=== PATIENT | female | born 1935 | race Caucasian/White ===

== ENCOUNTER 2017-01-29 08:50 | Observation (INO) ==
[2017-01-29] MEDS ORDERED: 0.9 % SODIUM CHLORIDE 1,000 ML IV ONE (09:09)
[2017-01-29] MEDS ORDERED: ONDANSETRON 4 MG/2 ML VIAL IV ONE (09:09)
--- NOTE | 2017-01-29 09:48 | Emergency Department Note ---
Nausea/Vomiting/Diarrhea HPI - General Chief complaint: Nausea/Vomiting/Diarrhea Stated complaint: Nausea, vomiting Diarrhea Time Seen by Provider: 01/29/17 09:06 Source: patient Mode of arrival: wheelchair - History of Present Illness HPI Narrative: 81-year-old female has had multiple episodes of nausea and vomiting this morning. 5 times. Several episodes of diarrhea as well this morning. There has been no blood in the stools. She is mostly complaining of increased weakness she is afebrile denies any cough no shortness of breath is been no chest pain. Had a history of urosepsis in the past is suspicious that this may be the case that she has had 3-4 episodes of hospitalizations in the past due to her UTIs. Patient is currently afebrile . - Related Data Home Medications Medication Instructions Recorded Confirmed aspirin 81 mg tablet,delayed 81 mg PO QDAY tab 02/20/15 01/29/17 release cholecalciferol (vitamin D3) 1,000 1,000 unit PO QDAY cap 02/20/15 01/29/17 unit capsule cranberry 400 mg capsule 400 mg PO QDAY cap 02/20/15 01/29/17 Previous Rx's Medication Instructions Recorded vit C 250 mg-E 200 unit-zinc 40 1 tab PO BID #60 cap 06/19/15 mg-copper 1 ty-mderwu-lauctw capsule pioglitazone 30 mg tablet 30 mg PO QDAY #90 tab 09/18/15 metformin 1,000 mg tablet 1,000 mg PO BID #180 tab 03/10/16 lisinopril 40 mg tablet 40 mg PO QDAY 90 Days 03/11/16 HYDROcodone/APAP 5/325MG [[place] 1 - 2 tab PO Q4HP PRN #60 tab 05/10/16 5/325Mg] blood sugar diagnostic strips See Dose Instructions .ROUTE 06/14/16 .MEDSUPPLY #100 each blood-glucose meter See Dose Instructions .ROUTE 06/14/16 .MEDSUPPLY #1 each lancets See Dose Instructions .ROUTE 06/14/16 .MEDSUPPLY #100 each ciprofloxacin 250 mg tablet 125 mg PO QDAY 90 Days 12/07/16 atorvastatin 20 mg tablet 20 mg PO QHS 90 Days 01/05/17 furosemide 20 mg tablet 20 mg PO QDAY PRN #90 tab 01/05/17 Allergies Allergy/AdvReac Type Severity Reaction Status Date / Time Penicillins Allergy Severe Anaphylaxis Verified 01/29/17 08:54 duloxetine [From Cymbalta] Allergy Unknown Unknown Verified 01/29/17 08:54 morphine Allergy Unknown Unknown Verified 01/29/17 08:54 pregabalin [From Lyrica] AdvReac Mild Vomiting Verified 01/29/17 08:54 MEPERIDINE & RELATED Allergy Unknown Unknown Uncoded 01/05/17 12:58 SULF (SULFONAMIDES) Allergy Unknown Unknown Uncoded 01/05/17 12:58 Review of Systems All systems ED: reviewed and negative except as stated. Constitutional: Denies: fever, chills Genitourinary: Reports: as per HPI. Denies: urgency, dysuria, frequency Musculoskeletal: Denies: back pain Past Medical History - Past Medical History Medical history: Reports: arthritis, diabetes, hyperlipidemia, hypertension, renal disease, thyroid disease, other (Diverticulitis, ventral hernia, anemia or recurrent urinary tract infection, hearing loss, atrial septal aneurysm, small bowel obstruction) Surgical history ED: Reports: cholecystectomy, hip replacement, orthopedic, other (right ankle) Family history: Reports: cancer (Mother ovarian cancer, father pancreatic cancer ) - Social History smoking status: Never smoker Alcohol use: Reports: None Drug use: Reports: none Physical Exam - General Limitations: no limitations General appearance: alert - Head Head exam: atraumatic - Eye Eye exam: Present: normal appearance, PERRL - ENT ENT exam: normal exam, normal oropharynx, mucous membranes dry - Neck Neck exam: Present: normal inspection, full ROM - Chest Chest inspection: Present: normal inspection - Respiratory Respiratory exam: Present: normal lung sounds bilaterally. Absent: respiratory distress, wheezes - Cardiovascular Cardiovascular exam: Present: regular rate. Absent: normal rhythm, bradycardia - Abdominal Exam Abdominal exam: Present: soft. Absent: distention, tenderness - Extremities Exam Extremities exam: Present: normal inspection, full ROM - Back Exam Back exam: Present: normal inspection, full ROM - Neurological Exam Neurological exam: Present: alert, oriented X3, CN II-XII intact, normal gait - Psychiatric Psychiatric exam: Present: normal affect, normal mood Course Vital Signs Temperature 98.1 F 01/29/17 08:51 Pulse Rate 72 01/29/17 08:51 Respiratory Rate 16 01/29/17 08:51 Blood Pressure 166/71 01/29/17 08:51 Pulse Oximetry (%) 99 01/29/17 08:51 Temperature 98.1 F 01/29/17 08:51 Pulse Rate 71 01/29/17 11:01 Respiratory Rate 16 01/29/17 08:51 Blood Pressure 140/55 01/29/17 11:01 Pulse Oximetry (%) 96 01/29/17 11:01 Nausea/Vomiting/Diarrhea - MDM Narrative Medical decision making narrative: Acid is 2.4 the UA shows an 80 WBCs per high-power field blood pressures are holding steady at 120 and above. Count is elevated at 11,460 appears to be normal. dr Banegas contacted patient to be admitted - Lab Data Result diagrams: 01/29/17 09:33 01/29/17 09:33 Lab Results 01/29/17 01/29/17 01/29/17 Range/Units 09:33 09:33 09:33 WBC 11.7 H (4.5-11.0) K/mcL RBC 4.05 (4.00-5.20) M/mcL Hgb 11.8 L (12.0-15.0) g/dL Hct 35.4 L (36.0-48.0) % MCV 87.3 (80.0-100.0) fL MCH 29.1 (26.0-34.0) pg MCHC 33.4 (31.0-36.0) g/dL RDW 13.4 (11.5-14.5) % Plt Count 289 (140-440) K/mcL MPV 8.3 (7.4-10.4) fL Gran % 84.2 H (38.0-78.0) % Lymph % (Auto) 10.1 L (15.5-49.0) % [place] % (Auto) 4.2 (1.0-12.0) % Eos % (Auto) 1.4 (0.0-7.0) % Baso % (Auto) 0.1 (0.0-2.0) % Gran # 9.8 H (1.8-8.0) K/mcL Lymph # 1.2 L (1.5-4.8) K/mcL [place] # 0.5 (0.1-0.9) K/mcL Eos # 0.2 (0.0-0.7) K/mcL Baso # 0 (0.0-0.3) K/mcL Band Neutrophils % Not Reportable VBG Lactic Acid (0.5-2.2) mmol/L Sodium 134 (133-145) mmol/L Potassium 4.4 (3.3-5.1) mmol/L Chloride 97 (96-108) mmol/L Carbon Dioxide 21 L (22-30) mmol/L Anion Gap 16.0 (8-16) BUN 25 H (8-23) mg/dl Creatinine 1.1 (0.6-1.1) mg/dl GFR Calculation 46 Glucose 291 H (70-105) mg/dL Calcium 9.6 (8.6-10.4) mg/dl Total Bilirubin 0.6 (0.0-1.0) mg/dL AST 13 (0-37) U/l ALT 13 (0-40) U/l Alkaline Phosphatase 96 (39-117) U/L Total Protein 6.6 (5.9-8.4) gm/dL Albumin 3.9 (3.2-5.2) gm/dL Globulin 2.7 (2.2-3.7) gm/dL Albumin/Globulin Ratio 1.4 (1.0-2.3) Lipase 39 (7-60) U/L Urine Color Urine Appearance Urine pH (5.0-9.0) Ur Specific [place] (1.000-1.035) Urine Protein (NEG) mg/dL Urine Glucose (UA) (NEG) mg/dL Urine Ketones (NEG) mg/dL Urine Occult Blood (<0.03) mg/dL Urine Nitrate (NEG) Urine Bilirubin (NEG) mg/dL Urine Urobilinogen (NEG) mg/dL Ur Leukocyte Esterase (NEG) /uL Urine RBC (0-1) /hpf Urine WBC (0-4) /hpf Ur Squamous Epith Cells (0-4) /hpf Urine Bacteria (0) /hpf Ur Culture Indicated? 01/29/17 01/29/17 Range/Units 09:34 09:55 WBC (4.5-11.0) K/mcL RBC (4.00-5.20) M/mcL Hgb (12.0-15.0) g/dL Hct (36.0-48.0) % MCV (80.0-100.0) fL MCH (26.0-34.0) pg MCHC (31.0-36.0) g/dL RDW (11.5-14.5) % Plt Count (140-440) K/mcL MPV (7.4-10.4) fL Gran % (38.0-78.0) % Lymph % (Auto) (15.5-49.0) % [place] % (Auto) (1.0-12.0) % Eos % (Auto) (0.0-7.0) % Baso % (Auto) (0.0-2.0) % Gran # (1.8-8.0) K/mcL Lymph # (1.5-4.8) K/mcL [place] # (0.1-0.9) K/mcL Eos # (0.0-0.7) K/mcL Baso # (0.0-0.3) K/mcL Band Neutrophils % VBG Lactic Acid 2.4 H (0.5-2.2) mmol/L Sodium (133-145) mmol/L Potassium (3.3-5.1) mmol/L Chloride (96-108) mmol/L Carbon Dioxide (22-30) mmol/L Anion Gap (8-16) BUN (8-23) mg/dl Creatinine (0.6-1.1) mg/dl GFR Calculation Glucose (70-105) mg/dL Calcium (8.6-10.4) mg/dl Total Bilirubin (0.0-1.0) mg/dL AST (0-37) U/l ALT (0-40) U/l Alkaline Phosphatase (39-117) U/L Total Protein (5.9-8.4) gm/dL Albumin (3.2-5.2) gm/dL Globulin (2.2-3.7) gm/dL Albumin/Globulin Ratio (1.0-2.3) Lipase (7-60) U/L Urine Color Yellow Urine Appearance Cloudy Urine pH 5.0 (5.0-9.0) Ur Specific [place] 1.013 (1.000-1.035) Urine Protein 30 A (NEG) mg/dL Urine Glucose (UA) 150 A (NEG) mg/dL Urine Ketones Neg (NEG) mg/dL Urine Occult Blood Neg (<0.03) mg/dL Urine Nitrate Neg (NEG) Urine Bilirubin Neg (NEG) mg/dL Urine Urobilinogen Neg (NEG) mg/dL Ur Leukocyte Esterase 500 A (NEG) /uL Urine RBC 5 H (0-1) /hpf Urine WBC > 182 H (0-4) /hpf Ur Squamous Epith Cells 0 (0-4) /hpf Urine Bacteria Many A (0) /hpf Ur Culture Indicated? Yes Disposition Disposition: Xfer As Inpt ([facility]) Condition: Fair Referrals: Brandon Nunez DO [Primary Care Provider] - Time of Disposition: 11:35
[2017-01-29] MEDS ORDERED: PROMETHAZINE 25 MG/ML VIAL IV ONE (09:52)
[2017-01-29 10:21] LABS: Basophils # (Auto) 0 K/mcL (0.0-0.3); Basophils % (Auto) 0.1 % (0.0-2.0); Eosinophils # (Auto) 0.2 K/mcL (0.0-0.7); Eosinophils % (Auto) 1.4 % (0.0-7.0); Granulocytes % (Auto) 84.2 % (38.0-78.0); Lymphocytes # (Auto) 1.2 K/mcL (1.5-4.8); Lymphocytes % (Auto) 10.1 % (15.5-49.0); Mean Cell Volume 87.3 fL (80.0-100.0); Mean Corpuscular HGB Conc 33.4 g/dL (31.0-36.0); Mean Corpuscular Hemoglobin 29.1 pg (26.0-34.0); Monocytes # (Auto) 0.5 K/mcL (0.1-0.9); Monocytes % (Auto) 4.2 % (1.0-12.0); Platelet Count 289 K/mcL (140-440); RBC 4.05 M/mcL (4.00-5.20); Red Cell Distribution Width 13.4 % (11.5-14.5)
[2017-01-29 10:37] LABS: Appearance,Urine CLOUDY; Bacteria,Urine MANY /hpf (0); Bilirubin,Urine NEG (NEG); Color,Urine YELLOW; Glucose,Urine (UA) 150 mg/dL (NEG); Leukocyte Esterase,Urine 500 /uL (NEG); Nitrate,Urine NEG (NEG); Protein,Urine 30 mg/dL (NEG); Specific Gravity,Urine 1.013 (1.000-1.035); Urine Blood NEG mg/dL (<0.03); Urine RBC 5 /hpf (0-1); Urine Squamous Epithelial Cell 0 /hpf (0-4); Urine WBC > 182 /hpf (0-4); Urobilinogen,Urine NEG (NEG)
[2017-01-29 10:40] LABS: ALT/SGPT 13 U/l (0-40); Albumin 3.9 gm/dL (3.2-5.2); Albumin/Globulin Ratio 1.4 (1.0-2.3); Alkaline Phosphatase 96 U/L (39-117); Blood Urea Nitrogen 25 mg/dl (8-23); Lipase 39 U/L (7-60)
[2017-01-29] MEDS ORDERED: LEVOFLOXACIN 500 MG/100 ML BAG IV ONE (10:59)
--- NOTE | 2017-01-29 12:02 | Internal Med History&Physical ---
Medical - H&P: HPI Patient information: Note initiated : 01/29/17 at 12:00 pm Patient: Chloe Benitez 81 y/o F admitted on for probable urinary tract infection, with associated nausea, vomiting, diarrhea History of present illness: Ms. Benitez is a 81 year old female with a past history of multiple urinary tract infections, and several episodes of urosepsis. she saw a urologist quite a few years ago, who ultimately put her on daily low-dose ciprofloxacin to prevent recurrent UTI. Her daughter says she is done quite well on that, although she will occasionally have a breakthrough UTI. The patient was in her normal state of health until this morning, when she had the sudden onset of feeling very hot, nauseated, dizzy and then began vomiting this morning, after waking up. She knew to call her son and all right away to bring her to the hospital, as this is how her episodes of sepsis have started in the past. She says she seemed to vomit food from last night There was nothing that was dark brown, black, or red. She did feel dizzy this morning as well. She had a headache initially, but that has resolved. She did have 2 episodes of loose stools this morning, but none since then. She does have chronic urinary incontinence, but otherwise denies painful urination or hematuria. ER evaluation did show leukocytosis, elevated lactic acid, pyuria. Otherwise, the patient denies overt fever, new eye or ear symptoms, sore throat or cough, chest pain or palpitations, shortness of breath or wheezing, abdominal pain, right red blood per rectum. the patient is penicillin allergic, but her daughter says she has received Keflex in the past, and tolerated that well. 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 Hypertension, essential (Chronic 11/01/13) Hypothyroidism (acquired) (Chronic 11/01/13) noted abnormal tsh recheck same Obesity (Chronic) Osteoarthritis, knee (Chronic) Pure hypertriglyceridemia (Chronic) Recurrent urinary tract infection (Chronic) Ventral hernia (Chronic) Vitamin D deficiency (Chronic 11/08/13) vit d level 15 start vitamin d3 1000 unit units daily Radial fracture (Resolved) 04/27/2014 Dr Hernández Small bowel obstruction (Resolved) Surgical History H/O ventral hernia repair (Chronic) Hx of laparoscopy (Chronic 10/19/15) Laparoscopy followed by exploratory laparotomy with adhesiolysis - Dr. Quinteros Status post total knee replacement (Chronic) Follows with Dr Ryan, Left knee done october 2014 History of (Inactive) X2 History of cholecystectomy (Inactive) laparoscopic History of cystoscopy (Inactive 10/11/14) Dr Mendez History of total hip replacement (Inactive) left History of ventral hernia (Inactive) ventral herniorraphy X2 2000 & 2002 Status post VINOD-BSO (Inactive) Medication List aspirin 81 mg PO QDAY atorvastatin (Lipitor) 20 mg PO QHS 90 days cholecalciferol (vitamin D3) 1,000 units PO QDAY ciprofloxacin 125 mg (1/2 x 250 mg) PO QDAY 90 days cranberry 400 mg PO QDAY furosemide 20 mg PO QDAY PRN hydrocodone-acetaminophen 5-325 mg 1 - 2 tabs PO Q4HP PRN lancets As directed, Test blood sugar once daily lisinopril (Zestril) 40 mg PO QDAY 90 days metformin 1,000 mg PO BID pioglitazone 30 mg PO QDAY vit C,L-Wy-dkdiy-lutein-zeaxan [id number] fg-snhp-mz-mg 1 tab PO BID Allergies/Adverse Reactions Penicillins Allergy (Severe, Verified 01/05/17 12:58) Anaphylaxis duloxetine [From Cymbalta] Allergy (Unknown, Verified 01/05/17 12:58) Unknown morphine Allergy (Unknown, Verified 01/05/17 12:58) Unknown levofloxacin Adverse Reaction (Mild, Verified 01/05/17 12:58) Nausea pregabalin [From Lyrica] Adverse Reaction (Mild, Verified 01/05/17 12:58) Vomiting MEPERIDINE & RELATED Allergy (Unknown, Uncoded 01/05/17 12:58) Unknown SULF (SULFONAMIDES) Allergy (Unknown, Uncoded 01/05/17 12:58) Unknown Family History Mother/52 Malignant neoplasm of ovary with BRCA1 gene mutation Father/78 Type 2 diabetes mellitus Malignant neoplasm of pancreas Social History smoking status: Never smoker alcohol intake frequency: does not drink substance use type: does not use Medical - H&P: Meds Home Medications Medication Instructions Recorded Confirmed Type aspirin 81 mg tablet,delayed 81 mg PO QDAY tab 02/20/15 01/29/17 History release cholecalciferol (vitamin D3) 1,000 1,000 unit PO QDAY cap 02/20/15 01/29/17 History unit capsule cranberry 400 mg capsule 400 mg PO QDAY cap 02/20/15 01/29/17 History vit C 250 mg-E 200 unit-zinc 40 1 tab PO BID #60 cap 06/19/15 01/29/17 Rx mg-copper 1 kc-dgymiy-jckbgd capsule pioglitazone 30 mg tablet 30 mg PO QDAY #90 tab 09/18/15 01/29/17 Rx metformin 1,000 mg tablet 1,000 mg PO BID #180 tab 03/10/16 01/29/17 Rx lisinopril 40 mg tablet 40 mg PO QDAY 90 Days 03/11/16 01/29/17 Rx HYDROcodone/APAP 5/325MG [[place] 1 - 2 tab PO Q4HP PRN #60 tab 05/10/16 01/29/17 Rx 5/325Mg] blood sugar diagnostic strips See Dose Instructions .ROUTE 06/14/16 01/05/17 Rx .MEDSUPPLY #100 each blood-glucose meter See Dose Instructions .ROUTE 06/14/16 01/05/17 Rx .MEDSUPPLY #1 each lancets See Dose Instructions .ROUTE 06/14/16 01/05/17 Rx .MEDSUPPLY #100 each ciprofloxacin 250 mg tablet 125 mg PO QDAY 90 Days 12/07/16 01/29/17 Rx atorvastatin 20 mg tablet 20 mg PO QHS 90 Days 01/05/17 01/29/17 Rx furosemide 20 mg tablet 20 mg PO QDAY PRN #90 tab 01/05/17 01/29/17 Rx Allergies Allergy/AdvReac Type Severity Reaction Status Date / Time Penicillins Allergy Severe Anaphylaxis Verified 01/29/17 08:54 duloxetine [From Cymbalta] Allergy Unknown Unknown Verified 01/29/17 08:54 morphine Allergy Unknown Unknown Verified 01/29/17 08:54 pregabalin [From Lyrica] AdvReac Mild Vomiting Verified 01/29/17 08:54 MEPERIDINE & RELATED Allergy Unknown Unknown Uncoded 01/05/17 12:58 SULF (SULFONAMIDES) Allergy Unknown Unknown Uncoded 01/05/17 12:58 Medical - H&P: Exam - Constitutional Vitals: Temp Pulse Resp BP Pulse Ox 98.1 F 69 16 140/55 95 01/29/17 08:51 01/29/17 11:31 01/29/17 08:51 01/29/17 11:01 01/29/17 11:31 on exam, she is a well-developed well-nourished elderly woman in no acute distress. Head is normocephalic, atraumatic. Eyes: PERRLA, EOMI, anicteric. She appears to have bilateral IOLs. Ears: TMs and canals are clear. Pharynx:The patient is a full upper plate. She has only a few remaining teeth in her lower jaw. Posterior pharynx is clear.Neck: Is supple, without obvious JVD, thyromegaly, bruits lymphadenopathy Cardiac exam: Shows regular rate and rhythm, with normal S1 and S2. No murmurs , rubs, gallops are appreciated Lungs: Are clear to auscultation, without obvious rales, rhonchi, wheezes. Abdomen: Soft and nontender, without obvious masses. Bowel sounds are active. There is no guarding or rebound. Extremities: Show no cyanosis or clubbing. There is a trace edema around the right ankle, which she reports she's had since her ankle fracture last year. Neurologic exam: Patient is alert and oriented, calm and cooperative. Exam is grossly nonfocal. Medical - H&P: Reslt - Labs CBC & Chem 7: 01/29/17 09:33 01/29/17 09:33 Labs: Short CBC 01/29/17 Range/Units 09:33 WBC 11.7 H (4.5-11.0) K/mcL Hgb 11.8 L (12.0-15.0) g/dL Hct 35.4 L (36.0-48.0) % Plt Count 289 (140-440) K/mcL BMP 01/29/17 09:33 Sodium 134 Potassium 4.4 Chloride 97 Carbon Dioxide 21 L BUN 25 H Creatinine 1.1 Glucose 291 H Calcium 9.6 Liver Function 01/29/17 Range/Units 09:33 Total Bilirubin 0.6 (0.0-1.0) mg/dL AST 13 (0-37) U/l ALT 13 (0-40) U/l Alkaline Phosphatase 96 (39-117) U/L Albumin 3.9 (3.2-5.2) gm/dL Urine 01/29/17 Range/Units 09:34 Urine Color Yellow Urine Appearance Cloudy Urine pH 5.0 (5.0-9.0) Ur Specific [place] 1.013 (1.000-1.035) Urine Protein 30 A (NEG) mg/dL Urine Glucose (UA) 150 A (NEG) mg/dL January 29: CBC differential shows 9800 neutrophils lactic acid is elevated at 2.4 urinalysis: Shows 30 mg of protein, 150 mg of glucose, 500 leukocyte esterase greater than 180 white blood cells many bacteria hest x-ray: Is pending Medical - H&P: A/P (1) Nausea and vomiting in adult Current visit: Yes Status: Acute (2) Dehydration Current visit: Yes Status: Acute (3) Diarrhea Current visit: Yes Status: Acute (4) CKD (chronic kidney disease), stage II Problem details: creat stable, follows with Nephrology, continue to monitor, etiology DM and HTN likely. Current visit: No Status: Chronic (5) Hypothyroidism (acquired) Problem details: noted abnormal tsh recheck same Current visit: No Status: Chronic (6) Hypertension, essential Current visit: No Status: Chronic (7) Diabetes mellitus type 2 with neurological manifestations Problem details: Current visit: No Status: Chronic (8) Recurrent urinary tract infection Current visit: No Status: Acute (9) Anemia Problem details: noted on labs done during knee surgeyr, check cbc to ensure its resolved. Current visit: No Status: Chronic - Narrative A/P Narrative: 31. Infectious disease. -This patient presents with weakness, nausea vomiting and diarrhea, urinalysis suggestive of urinary tract infection, as well as elevated lactic acid and leukocytosis. She is having trouble maintaining oral intake, and appears a bit dehydrated, so will require admission for treatment. -she has been on ciprofloxacin as an outpatient as a suppressive agent so I would think we would need to use a non-fluoroquinolone for management. I would like to use Rocephin o I did check with her daughter who believes that the patient has tolerated oral Keflex in the past. This should make the risk of cross sensitivity reaction last period. -urine and blood cultures -hold ciprofloxacin. #2. Renal. -patient presents with mild lactic acidosis, and dehydration. Bicarbonate is on the low side. She also takes metformin, so is at risk for acidosis from that as well. -hold metformin. -IV fluids. Recheck lactic acid in 6 hours. -Reported mild chronic kidney disease. Follow labs. #3. GI. -Nausea vomiting and diarrhea Patient is at risk for C. difficile colitis, given that she takes antibiotics chronically. Send stool for C. difficile screen. Stool culture also ordered. #4. Endocrine. -Type 2 diabetes. etformin is on hold. Cover with sliding scale insulin. Continue by mouth glitazone. Verify whether or not she is on sitagliptin. -continue aspirin, statin, RADHA inhibitor. -reported vitamin D deficiency. Continue vitamin D. #5.macular degeneration. Continue IV vitamin, and IM injections per op so. #6. CODE STATUS: 37. DVT prophylaxis: Subcutaneous heparin. #8. Cardiac. -Hypertension. Continue meds. Monitor. #9. Anemia; -she has mild chronic anemia. Hemoglobin varies from 9-11 over the last year. follow. #10. Polyarthritis, chronic, with some degree of chronic pain Continue when necessary hydrocodone, as at home. #11. History of hypertension. Continue lisinopril. #12. reported History of hypothyroidism. i do not see that she takes thyroid medicine, or that this has been checked recently. She can follow-up with her PCP regarding this. #13.History of hypertriglyceridemia. Patient is currently treated with atorvastatin. Continue. this visit has taken approximately 55 minutes, to review the patient's old records, interview and examine her discussed plan of care with the patient and her daughter, and write orders.
[2017-01-29 12:15] LABS: Eosinophils % (Manual) 1 % (0-7); Lymphocytes % 9 % (15-49); Monocytes % (Manual) 3 % (1-12); Platelet Estimate NORMAL (NORMAL); RBC Morphology NORMAL (NORMAL); Segmented Neutrophils % 87 % (38-78)
[2017-01-29] MEDS ORDERED: ONDANSETRON 4 MG/2 ML VIAL IV PRN (12:47)
[2017-01-29] MEDS ORDERED: NALOXONE HCL 0.4 MG/ML VIAL IV PRN (12:47)
[2017-01-29] MEDS ORDERED: MAGNESIUM HYDROXIDE 30 ML ORAL.SUSP PO PRN (12:47)
[2017-01-29] MEDS ORDERED: DOCUSATE SODIUM 100 MG CAPSULE PO PRN (12:47)
[2017-01-29] MEDS ORDERED: DEXTROSE 50% 50 ML VIAL IV PRN (12:47)
[2017-01-29] MEDS ORDERED: ACETAMINOPHEN 325 MG TABLET PO PRN (12:47)
[2017-01-29] MEDS: POTASSIUM CHLORIDE 10 MEQ in 0.45 % SODIUM CHLORIDE 1,000 ML IV SCH (13:08)
[2017-01-29] MEDS: INSULIN LISPRO 1 UNIT/0.01 ML UNIT SQ SCH ×3 (13:09→21:35)
[2017-01-29 14:21] LABS: Hemoglobin A1C 8.7 % HGB (4.0-6.0)
[2017-01-29] MEDS: 0.9 % SODIUM CHLORIDE 10 ML SYRINGE IV SCH ×2 (14:33→21:40)
--- NOTE | 2017-01-29 15:01 | XRay Report ---
CLINICAL INFORMATION: Weakness COMPARISON: None. FINDINGS: The heart is mildly enlarged, but unchanged. Mediastinum and pulmonary vessels are unremarkable. Minimal basilar atelectasis noted. No effusions. IMPRESSION: Mild cardiomegaly - stable. Interpreted and Authenticated by: Brnadon Ag 01/29/17
[2017-01-29] MEDS: cefTRIAXone 1 GM in DEXTROSE 5% IN WATER 50 ML IV SCH (16:06)
[2017-01-29] MEDS: HEPARIN 5,000 UNIT/ML VIAL SQ SCH (21:34)
[2017-01-30] MEDS: POTASSIUM CHLORIDE 10 MEQ in 0.45 % SODIUM CHLORIDE 1,000 ML IV SCH ×3 (00:10→21:47)
[2017-01-30] MEDS: 0.9 % SODIUM CHLORIDE 10 ML SYRINGE IV SCH ×3 (05:36→21:51)
[2017-01-30 06:35] LABS: Basophils # (Auto) 0 K/mcL (0.0-0.3); Basophils % (Auto) 0.3 % (0.0-2.0); Eosinophils # (Auto) 0.2 K/mcL (0.0-0.7); Eosinophils % (Auto) 2.3 % (0.0-7.0); Granulocytes % (Auto) 75.7 % (38.0-78.0); Lymphocytes # (Auto) 1.4 K/mcL (1.5-4.8); Lymphocytes % (Auto) 14.3 % (15.5-49.0); Mean Cell Volume 87.3 fL (80.0-100.0); Mean Corpuscular HGB Conc 33.5 g/dL (31.0-36.0); Mean Corpuscular Hemoglobin 29.2 pg (26.0-34.0); Monocytes # (Auto) 0.7 K/mcL (0.1-0.9); Monocytes % (Auto) 7.4 % (1.0-12.0); Platelet Count 262 K/mcL (140-440); RBC 3.67 M/mcL (4.00-5.20); Red Cell Distribution Width 13.6 % (11.5-14.5)
[2017-01-30 07:07] LABS: ALT/SGPT 13 U/l (0-40); Albumin 3.7 gm/dL (3.2-5.2); Albumin/Globulin Ratio 1.7 (1.0-2.3); Alkaline Phosphatase 89 U/L (39-117); Bilirubin,Direct < 0.2 mg/dL (0.0-0.3); Blood Urea Nitrogen 23 mg/dl (8-23); Gamma Glutamyl Transpeptidase 10 U/L (5-36); Magnesium 1.7 mg/dL (1.6-2.5); Uric Acid 5.9 mg/dL (2.5-8.0)
[2017-01-30] MEDS: INSULIN LISPRO 1 UNIT/0.01 ML UNIT SQ SCH ×4 (08:07→21:50)
[2017-01-30] MEDS: HEPARIN 5,000 UNIT/ML VIAL SQ SCH ×2 (08:08→21:50)
[2017-01-30] MEDS: cefTRIAXone 1 GM in DEXTROSE 5% IN WATER 50 ML IV SCH (09:22)
--- NOTE | 2017-01-30 11:31 | Internal Med Progress Note ---
Medical - PN: Subj Patient information: Note initiated : 01/30/17 at 11:31 am Patient: Chloe Benitez 81 y/o F admitted on 01/29/17 for Nausea, vomiting Diarrhea. Interval history: January 29, 2017: History of present illness: Ms. Benitez is a 81 year old female with a past history of multiple urinary tract infections, and several episodes of urosepsis. she saw a urologist quite a few years ago, who ultimately put her on daily low-dose ciprofloxacin to prevent recurrent UTI. Her daughter says she is done quite well on that, although she will occasionally have a breakthrough UTI. The patient was in her normal state of health until this morning, when she had the sudden onset of feeling very hot, nauseated, dizzy and then began vomiting this morning, after waking up. She knew to call her son and all right away to bring her to the hospital, as this is how her episodes of sepsis have started in the past. She says she seemed to vomit food from last night There was nothing that was dark brown, black, or red. She did feel dizzy this morning as well. She had a headache initially, but that has resolved. She did have 2 episodes of loose stools this morning, but none since then. She does have chronic urinary incontinence, but otherwise denies painful urination or hematuria. ER evaluation did show leukocytosis, elevated lactic acid, pyuria. Otherwise, the patient denies overt fever, new eye or ear symptoms, sore throat or cough, chest pain or palpitations, shortness of breath or wheezing, abdominal pain, right red blood per rectum. January 30: today, the patient notes she is feeling quite a bit better. She has not had any more fever or chills, nausea or vomiting or diarrhea. She did have a soft, formed bowel movement this morning. Her nurse reports that her urine seems to be quite a bit less cloudy and less dark today. otherwise, she denies headaches or dizziness, chest pain or palpitations, shortness of breath, abdominal pain, nausea or vomiting, diarrhea or constipation. She has chronic urinary incontinence, but denies any pain with urination. - Constitutional Vitals: Vital Signs Temp Pulse Resp BP Pulse Ox 97.5 F 70 20 130/68 96 01/30/17 07:17 01/30/17 04:00 01/30/17 08:15 01/30/17 07:17 01/30/17 08:15 Period Temp Pulse Resp BP Sys/Abreu Pulse Ox Last 24 Hr 97.5 F-98.7 F 70-90 16-20 123-148/68-77 94-97 Intake and Output 01/29/17 01/30/17 01/30/17 21:59 05:59 13:59 Intake Total 760 / 760 1205 / 1205 1005 / 1005 Output Total 1500 / 1500 1450 / 1450 Balance -740 / -740 -245 / -245 1005 / 1005 Weight 173 lb Intake & Output: Intake & Output 01/29/17 01/30/17 01/30/17 21:59 05:59 13:59 Intake Total 760 / 760 1205 / 1205 1005 / 1005 Output Total 1500 / 1500 1450 / 1450 Balance -740 / -740 -245 / -245 1005 / 1005 Weight 173 lb Intake: IV 50 / 50 1005 / 1005 1005 / 1005 Potassium Chloride 10 Meq 1005 / 1005 1005 / 1005 In Sodium Chloride 0.45% 1,000 ml @ 100 mls/hr IV .Q10H3M [facility] Rx#: [id number] Rocephin 1 gm In Dextrose 50 / 50 5% in Water 50 ml @ 100 mls/hr IV Q24H [facility] Rx#: [id number] Oral 710 / 710 200 / 200 Output: Void Amount 1500 / 1500 1450 / 1450 Other: Meal Dinner Snack Percent of Meal Consumed 90% 100% Feeding Ability Independent Assist with Tray Set Up # Voids 1 1 # Bowel Movements 1 on exam, she is sitting up in bed. She is awake and alert, and in no acute distress. Neck is supple without lymphadenopathy or JVD. Cardiac exam shows regular rate and rhythm. Lungs are clear to auscultation. Abdomen is soft and nontender. Bowel sounds are active. Extremities show trace edema around her right ankle. Neurologic exam: Is grossly nonfocal Medical - PN: Obj Da - Labs CBC & Chem 7: 01/30/17 05:12 01/30/17 05:12 Labs: Abnormal Lab Results 01/30/17 01/30/17 05:12 05:12 RBC 3.67 L Hgb 10.7 L Hct 32.0 L Lymph % (Auto) 14.3 L Lymph # 1.4 L Creatinine 1.2 H Glucose 254 H Triglycerides 248 H january 30: -C. difficile screen is negative. -Blood cultures are negative so far -Urine culture is growing greater than 100,000 gram-negative bacilli , ID to follow January 29: CBC differential shows 9800 neutrophils lactic acid is elevated at 2.4 lactic acid #2, was normal at 2.0 urinalysis: Shows 30 mg of protein, 150 mg of glucose, 500 leukocyte esterase greater than 180 white blood cells many bacteria chest x-ray:showed mild cardiomegaly, unchanged from previous. There is minimal basilar atelectasis. Meds: Medications Acetaminophen (Tylenol) 650 mg PO Q6HP PRN PRN Reason: PAIN/FEVER > 101 Ascorbic Acid (Vitamin C) 500 mg PO BIDCC [facility] Aspirin (Aspirin) 81 mg PO DAILY [facility] Atorvastatin Calcium (Lipitor) 20 mg PO QHS [facility] Dextrose (Dextrose 50%) 0 ml IV UD PRN PRN Reason: Hypoglycemia Diagnostic Test (Pha) (Accu-Chek) 1 each FS ACHS [facility] Last Admin: 01/30/17 11:00 Dose: 1 each Docusate Sodium (Colace) 100 mg PO BID PRN PRN Reason: Constipation Heparin Sodium (Porcine) (Heparin) 5,000 unit SQ Q12 [facility] Last Admin: 01/30/17 08:08 Dose: 5,000 unit Ceftriaxone Sodium 1 gm/ (Dextrose) 50 mls @ 100 mls/hr IV Q24H [facility] Last Admin: 01/30/17 09:22 Dose: 100 mls/hr Potassium Chloride 10 meq/ (Sodium Chloride) 1,005 mls @ 100 mls/hr IV .Q10H3M [facility] Last Admin: 01/30/17 10:58 Dose: 100 mls/hr Insulin Human Lispro (Humalog) 0 unit SQ ACHS [facility] PRN Reason: Protocol Last Admin: 01/30/17 11:00 Dose: 4 unit Lisinopril (Zestril) 40 mg PO DAILY [facility] Magnesium Hydroxide (Milk Of Magnesia) 30 ml PO DAILYP PRN PRN Reason: Constipation Naloxone HCl (Narcan) 0.1 mg IV Q2MIN PRN PRN Reason: Opiate Reversal Ondansetron HCl (Zofran) 4 mg IV Q6HP PRN PRN Reason: Nausea And Vomiting Pioglitazone HCl (Actos) 30 mg PO DAILY [facility] Sitagliptin Phosphate (Januvia) 100 mg PO DAILY [facility] Sodium Chloride (Saline Flush) 10 ml IV Q8 [facility] Last Admin: 01/30/17 05:36 Dose: Not Given Vitamin D (Vitamin D3) 1,000 unit PO DAILY [facility] Medical - PN: A/P - Time Spent With Patient Total time spent is greater than 50% in coordination of care (as documented) at patient's floor/unit and/or counseling patient: 15 - 24 minutes (1) Nausea and vomiting in adult Status: Resolved Current Visit: Yes (2) Dehydration Status: Resolved Current Visit: Yes (3) Diarrhea Status: Resolved Current Visit: Yes (4) CKD (chronic kidney disease), stage II Problem details: creat stable, follows with Nephrology, continue to monitor, etiology DM and HTN likely. 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 Status: Chronic Current Visit: No - Narrative A/P Narrative: #1. Infectious disease. -This patient presents with weakness, nausea vomiting and diarrhea, urinalysis suggestive of urinary tract infection, as well as elevated lactic acid and leukocytosis. She is having trouble maintaining oral intake, and appears a bit dehydrated, so will require admission for treatment. -she seems to be feeling quite a bit better today, and most symptoms have resolved. She is on empiric Rocephin, pending urine culture results. Urine is growinggram -negative rods. -blood cultures are negative so far. #2. Renal. -patient presents with mild lactic acidosis, and dehydration. Bicarbonate is on the low side. She also takes metformin, so is at risk for acidosis from that as well. -hold metformin. -lactic acidosis resolved with hydration. -Reported mild chronic kidney disease. creatinine varies from 1.1-1.3, and is stable. #3. GI. -Nausea vomiting and diarrhea Patient is at risk for C. difficile colitis, given that she takes antibiotics chronically. -C. difficile screen was negative. The patient is no longer having diarrhea. #4. Endocrine. -Type 2 diabetes. metformin is on hold. glucoses are ranging from 149-291. Cover with sliding scale insulin. -continue Actos and Januvia. -continue aspirin, statin, RADHA inhibitor. -reported vitamin D deficiency. Continue vitamin D. #5.macular degeneration. Continue intraocular avastin injections per ophthalmology. #6. CODE STATUS:the patient and her daughter decided she didn't want to be full code and they reminded us that we had this in our records. However when her nurse pulled her old records, and actually said no CPR. I believe the nurse went back and in clarified that they do indeed want full code. #7. DVT prophylaxis: Subcutaneous heparin. #8. Cardiac. -Hypertension. -controlled. Continue meds. Monitor. #9. Anemia; -she has mild chronic anemia. Hemoglobin varies from 9-11 over the last year. follow. #10. Polyarthritis, chronic, with some degree of chronic pain Continue when necessary hydrocodone, as at home. #11. History of hypertension. Continue lisinopril. #12. reported History of hypothyroidism. i do not see that she takes thyroid medicine, or that this has been checked recently. She can follow-up with her PCP regarding this. #13.History of hypertriglyceridemia. Patient is currently treated with atorvastatin. Continue. this visit took approximately 25 minutes today, to review test results, interview and examine her, and write orders. Medical - PN: Qual - VTE Deep Vein Thrombosis/Pulmonary Embolism Present on Admission: No
[2017-01-30] MEDS: ASCORBIC ACID 500 MG TABLET PO SCH (17:24)
[2017-01-30] MEDS ORDERED: ATORVASTATIN 20 MG TABLET PO SCH (21:00)
[2017-01-30] MEDS ORDERED: FUROSEMIDE 20 MG TABLET PO PRN (21:38)
[2017-01-31] MEDS: 0.9 % SODIUM CHLORIDE 10 ML SYRINGE IV SCH ×2 (06:06→12:31)
[2017-01-31 06:41] LABS: Basophils # (Auto) 0 K/mcL (0.0-0.3); Basophils % (Auto) 0.2 % (0.0-2.0); Eosinophils # (Auto) 0.3 K/mcL (0.0-0.7); Eosinophils % (Auto) 4.7 % (0.0-7.0); Granulocytes % (Auto) 66.5 % (38.0-78.0); Lymphocytes # (Auto) 1.4 K/mcL (1.5-4.8); Lymphocytes % (Auto) 20.9 % (15.5-49.0); Mean Cell Volume 86.3 fL (80.0-100.0); Mean Corpuscular HGB Conc 34.9 g/dL (31.0-36.0); Mean Corpuscular Hemoglobin 30.1 pg (26.0-34.0); Monocytes # (Auto) 0.5 K/mcL (0.1-0.9); Monocytes % (Auto) 7.7 % (1.0-12.0); Platelet Count 243 K/mcL (140-440); RBC 3.59 M/mcL (4.00-5.20); Red Cell Distribution Width 13.1 % (11.5-14.5)
[2017-01-31 07:04] LABS: ALT/SGPT 16 U/l (0-40); Albumin 3.5 gm/dL (3.2-5.2); Albumin/Globulin Ratio 1.4 (1.0-2.3); Alkaline Phosphatase 91 U/L (39-117); Bilirubin,Direct < 0.2 mg/dL (0.0-0.3); Blood Urea Nitrogen 20 mg/dl (8-23); Gamma Glutamyl Transpeptidase 14 U/L (5-36); Magnesium 1.8 mg/dL (1.6-2.5); Uric Acid 5.7 mg/dL (2.5-8.0)
[2017-01-31] MEDS: ASCORBIC ACID 500 MG TABLET PO SCH (08:25)
[2017-01-31] MEDS: INSULIN LISPRO 1 UNIT/0.01 ML UNIT SQ SCH ×2 (08:25→11:43)
[2017-01-31] MEDS: HEPARIN 5,000 UNIT/ML VIAL SQ SCH (08:26)
[2017-01-31] MEDS: cefTRIAXone 1 GM in DEXTROSE 5% IN WATER 50 ML IV SCH (08:44)
[2017-01-31] MEDS ORDERED: ASPIRIN 81 MG TAB.CHEW PO SCH (09:00)
[2017-01-31] MEDS ORDERED: PIOGLITAZONE 15 MG TABLET PO SCH (09:00)
[2017-01-31] MEDS ORDERED: sitaGLIPtin 100 MG TABLET PO SCH (09:00)
[2017-01-31] MEDS ORDERED: VITAMIN D3 1,000 UNIT TABLET PO SCH (09:00)
[2017-01-31] MEDS ORDERED: LISINOPRIL 20 MG TABLET PO SCH (09:00)
[2017-01-31] MEDS ORDERED: NITROFURANTOIN SR 100 MG CAPSULE PO SCH (11:22)
--- NOTE | 2017-01-31 11:29 | Discharge Summary ---
Medical - DS: Prov Patient information: Note initiated : 01/31/17 at 11:29 am Service Date, if different from initiated Date: [] Patient: Chloe Benitez 81 y/o F admitted on 01/29/17 for Nausea, Vomiting, Diarrhea/Dehydration. Chief Complaint: [] Date of admission: 01/29/17 12:35 Primary care physician: Brandon Nunez Medical - DS: Meds - Discharge Medications Active and Home Medications: Home Medications aspirin 81 mg tablet,delayed release 81 mg PO QDAY tab 02/20/15 [History Confirmed 01/29/17 Last Taken 01/28/17 08:00] cholecalciferol (vitamin D3) 1,000 unit capsule 1,000 unit PO QDAY cap [History Confirmed 01/29/17 Last Taken 01/28/17 08:00] cranberry 400 mg capsule 400 mg PO QDAY cap 02/20/15 [History Confirmed Last Taken 01/28/17 08:00] vit C 250 mg-E 200 unit-zinc 40 mg-copper 1 [id number] capsule 1 tab PO BID #60 cap 06/19/15 [Rx Confirmed 01/29/17 Last Taken 01/28/17 20:00] pioglitazone 30 mg tablet 30 mg PO QDAY #90 tab 09/18/15 [Rx Confirmed 01/29/17 Last Taken 01/28/17 08:00] metformin 1,000 mg tablet 1,000 mg PO BID #180 tab 03/10/16 [Rx Confirmed Last Taken 01/28/17 20:00] lisinopril 40 mg tablet 40 mg PO QDAY 90 Days 03/11/16 [Rx Confirmed 01/29/17 Last Taken 01/28/17 08:00] ciprofloxacin 250 mg tablet 125 mg PO QDAY 90 Days 12/07/16 [Rx Confirmed Last Taken 01/28/17 08:00] atorvastatin 20 mg tablet 20 mg PO QHS 90 Days 01/05/17 [Rx Confirmed 01/29/17 Last Taken 01/28/17 20:00] furosemide 20 mg tablet 20 mg PO QDAY PRN #90 tab 01/05/17 [Rx Confirmed Last Taken Unknown] Medical - DS: Hosp Hospital course: Mr. Benitez is a 81 year old male - Time Spent with Patient Total time spent providing and/or coordinating discharge services: Medical - DS: Exam - Constitutional Vitals: Vital Signs Temp Pulse Resp BP BP Pulse Ox 01/31/17 07:44 97.8 F 18 145/54 95 01/31/17 07:24 96 01/31/17 04:00 97.9 F 59 L 16 148/89 94 01/30/17 23:48 99.0 F H 65 18 156/83 96 01/30/17 20:00 97.2 F 70 16 169/80 94 01/30/17 15:06 97.6 F 18 130/65 96 01/30/17 12:00 98.1 F 18 138/77 97 Intake and Output 01/30/17 01/31/17 01/31/17 21:59 05:59 13:59 Intake Total 2105 / 2105 400 / 400 400 / 400 Output Total 1225 / 1225 1300 / 1300 1000 / 1000 Balance 880 / 880 -900 / -900 -600 / -600 Intake: IV 1005 / 1005 Potassium Chloride 10 Meq 1005 / 1005 In Sodium Chloride 0.45% 1,000 ml @ 100 mls/hr IV .Q10H3M [facility] Rx#: [id number] Oral 1100 / 1100 400 / 400 400 / 400 Output: Void Amount 1225 / 1225 1300 / 1300 1000 / 1000 Other: Meal Dinner Percent of Meal Consumed 100% # Voids 1 1 Weight 176 lb Medical - DS: Data Labs on day of discharge: Labs from last 24 hours 01/31/17 01/31/17 05:27 05:27 WBC 6.8 RBC 3.59 L Hgb 10.8 L Hct 31.0 L MCV 86.3 MCH 30.1 MCHC 34.9 RDW 13.1 Plt Count 243 MPV 7.8 Gran % 66.5 Lymph % (Auto) 20.9 [place] % (Auto) 7.7 Eos % (Auto) 4.7 Baso % (Auto) 0.2 Gran # 4.5 Lymph # 1.4 L [place] # 0.5 Eos # 0.3 Baso # 0 Sodium 136 Potassium 4.6 Chloride 102 Carbon Dioxide 21 L Anion Gap 13.0 BUN 20 Creatinine 1.0 GFR Calculation 52 Glucose 282 H Uric Acid 5.7 Calcium 9.0 Phosphorus 3.2 Magnesium 1.8 Total Bilirubin 0.4 Direct Bilirubin < 0.2 GGT 14 AST 16 ALT 16 Alkaline Phosphatase 91 Lactate Dehydrogenase 126 Total Protein 6.0 Albumin 3.5 Globulin 2.5 Albumin/Globulin Ratio 1.4 Triglycerides 424 H Medical - DS: A/P - Problem Maintenance (1) Nausea and vomiting in adult Status: Resolved (2) Dehydration Status: Resolved (3) Diarrhea Status: Resolved (4) CKD (chronic kidney disease), stage II Status: Chronic Comment: creat stable, follows with Nephrology, continue to monitor, etiology DM and HTN likely. 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 - Follow up Plan Follow up with: Brandon Nunez DO [Primary Care Provider] - Prognosis: Fair Medical - DS: Qual - VTE Deep Vein Thrombosis/Pulmonary Embolism Present on Admission: No
--- NOTE | 2017-01-31 12:26 | Discharge Summary ---
Medical - DS: Prov Patient information: Note initiated : 01/31/17 at 12:23 pm Patient: Chloe Benitez 81 y/o F admitted on 01/29/17 for Nausea, Vomiting, Diarrhea/Dehydration. Date of admission: 01/29/17 12:35 Discharge date: 01/31/17 Primary care physician: Brandon Nunez Admitting clinician: Juliana Oropeza Attending physician on discharge: Juliana Oropeza Medical - DS: Meds - Discharge Medications Prescriptions: Nitrofurantoin Monohyd/M-Cryst [Macrobid 100 mg Capsule] 100 mg PO BID #14 capsule Active and Home Medications: discharge medications: Macrobid 100 mg by mouth twice a day, 7 days. tylenol 650 mg every 6 hours when necessary Vitamin C 500 mg twice a day Aspirin 81 mg daily Lipitor 20 mg daily at bedtime Lasix 20 mg daily when necessary ankle edema Lisinopril 40 mg daily Metformin 1000 mg by mouth twice a day actos 30 mg daily Januvia 100 mg daily Vitamin D 1000 units daily cranberry [id number] mg daily EYE vitamin 1 daily Home Medications aspirin 81 mg tablet,delayed release 81 mg PO QDAY tab 02/20/15 [History Confirmed 01/29/17 Last Taken 01/28/17 08:00] cholecalciferol (vitamin D3) 1,000 unit capsule 1,000 unit PO QDAY cap [History Confirmed 01/29/17 Last Taken 01/28/17 08:00] cranberry 400 mg capsule 400 mg PO QDAY cap 02/20/15 [History Confirmed Last Taken 01/28/17 08:00] vit C 250 mg-E 200 unit-zinc 40 mg-copper 1 [id number]-[id number] capsule 1 tab PO BID #60 cap 06/19/15 [Rx Confirmed 01/29/17 Last Taken 01/28/17 20:00] pioglitazone 30 mg tablet 30 mg PO QDAY #90 tab 09/18/15 [Rx Confirmed 01/29/17 Last Taken 01/28/17 08:00] metformin 1,000 mg tablet 1,000 mg PO BID #180 tab 03/10/16 [Rx Confirmed Last Taken 01/28/17 20:00] lisinopril 40 mg tablet 40 mg PO QDAY 90 Days 03/11/16 [Rx Confirmed 01/29/17 Last Taken 01/28/17 08:00] ciprofloxacin 250 mg tablet 125 mg PO QDAY 90 Days 12/07/16 [Rx Confirmed Last Taken 01/28/17 08:00] atorvastatin 20 mg tablet 20 mg PO QHS 90 Days 01/05/17 [Rx Confirmed 01/29/17 Last Taken 01/28/17 20:00] furosemide 20 mg tablet 20 mg PO QDAY PRN #90 tab 01/05/17 [Rx Confirmed Last Taken Unknown] Medical - DS: Hosp Hospital course: Mr. Benitez is a 81 year old male January 29, 2017: History of present illness: Ms. Benitez is a 81 year old female with a past history of multiple urinary tract infections, and several episodes of urosepsis. she saw a urologist quite a few years ago, who ultimately put her on daily low-dose ciprofloxacin to prevent recurrent UTI. Her daughter says she is done quite well on that, although she will occasionally have a breakthrough UTI. The patient was in her normal state of health until this morning, when she had the sudden onset of feeling very hot, nauseated, dizzy and then began vomiting this morning, after waking up. She knew to call her son and all right away to bring her to the hospital, as this is how her episodes of sepsis have started in the past. She says she seemed to vomit food from last night There was nothing that was dark brown, black, or red. She did feel dizzy this morning as well. She had a headache initially, but that has resolved. She did have 2 episodes of loose stools this morning, but none since then. She does have chronic urinary incontinence, but otherwise denies painful urination or hematuria. ER evaluation did show leukocytosis, elevated lactic acid, pyuria. Otherwise, the patient denies overt fever, new eye or ear symptoms, sore throat or cough, chest pain or palpitations, shortness of breath or wheezing, abdominal pain, right red blood per rectum. January 30: today, the patient notes she is feeling quite a bit better. She has not had any more fever or chills, nausea or vomiting or diarrhea. She did have a soft, formed bowel movement this morning. Her nurse reports that her urine seems to be quite a bit less cloudy and less dark today. otherwise, she denies headaches or dizziness, chest pain or palpitations, shortness of breath, abdominal pain, nausea or vomiting, diarrhea or constipation. She has chronic urinary incontinence, but denies any pain with urination. January 31: today, the patient says she is feeling much better. She is no longer having fever or chills, nausea or vomiting or diarrhea. she denies headaches or dizziness, chest pain or shortness of breath, abdominal pain, dysuria. On exam, he is awake and alert, sitting up in bed. She is in no acute distress. Neck is supple without lymphadenopathy or JVD. Cardiac exam shows regular rate and rhythm. Lungs are clear to auscultation. Abdomen is soft and nontender. Bowel sounds are active. Extremities show trace edema around her right ankle. Neurologic exam: Is grossly nonfocal assessment and plan: #1. Infectious disease. -This patient presents with weakness, nausea vomiting and diarrhea, urinalysis suggestive of urinary tract infection, as well as elevated lactic acid and leukocytosis. She was having trouble maintaining oral intake, and appeared a bit dehydrated, [facility] admitted for treatment with IV fluids and IV antibiotics. -she is now much improved, and feels ready to go home. -Urine is growing a multidrug resistant organism, but does appear sensitive to nitrofurantoin. Patient will be started on nitrofurantoin prior to discharge. -blood cultures are negative so far. #2. Renal. -patient presents with mild lactic acidosis, and dehydration. metformin was held. Acidosis resolved. Metformin can be resumed now. -Reported mild chronic kidney disease. creatinine varies from 1.1-1.3, and is stable. #3. GI. -Nausea vomiting and diarrhea Patient is at risk for C. difficile colitis, given that she takes antibiotics chronically. however, she really didn't have anymore diarrhea after admission. #4. Endocrine. -Type 2 diabetes. -resume usual meds. -continue aspirin, statin, RADHA inhibitor. -reported vitamin D deficiency. Continue vitamin D. #5.macular degeneration. Continue intraocular avastin injections per ophthalmology. #6. CODE STATUS:the patient and her daughter decided she didn't want to be full code and they reminded us that we had this in our records. However when her nurse pulled her old records, and actually said no CPR. I believe the nurse went back and in clarified that they do indeed want full code. #7. DVT prophylaxis: Subcutaneous heparin. #8. Cardiac. -Hypertension. -controlled. Continue meds. #9. Anemia; -she has mild chronic anemia. Hemoglobin varies from 9-11 over the last year. follow. #10. Polyarthritis, chronic, with some degree of chronic pain Continue when necessary hydrocodone, as at home. #11. History of hypertension. Continue lisinopril. #12. reported History of hypothyroidism. i do not see that she takes thyroid medicine, or that this has been checked recently. She can follow-up with her PCP regarding this. #13.History of hypertriglyceridemia. Patient is currently treated with atorvastatin. Continue. this visit took approximately 35 minutes today, to review patient's test results , track down her urine culture final results, review plan of care with the team , interview and examine the patient, and write orders. Discharge diagnosis: urinary tract infection. nausea vomiting and dehydration - Time Spent with Patient Total time spent providing and/or coordinating discharge services: Greater than 30 minutes Medical - DS: Exam - Constitutional Vitals: Vital Signs Temp Pulse Resp BP BP Pulse Ox 01/31/17 11:45 97.5 F 16 161/65 95 01/31/17 07:44 97.8 F 18 145/54 95 01/31/17 07:24 96 01/31/17 04:00 97.9 F 59 L 16 148/89 94 01/30/17 23:48 99.0 F H 65 18 156/83 96 01/30/17 20:00 97.2 F 70 16 169/80 94 01/30/17 15:06 97.6 F 18 130/65 96 Intake and Output 01/30/17 01/31/17 01/31/17 21:59 05:59 13:59 Intake Total 2105 / 2105 400 / 400 400 / 400 Output Total 1225 / 1225 1300 / 1300 1000 / 1000 Balance 880 / 880 -900 / -900 -600 / -600 Intake: IV 1005 / 1005 Potassium Chloride 10 Meq 1005 / 1005 In Sodium Chloride 0.45% 1,000 ml @ 100 mls/hr IV .[id number] BRENT Rx#: [id number] Oral 1100 / 1100 400 / 400 400 / 400 Output: Void Amount 1225 / 1225 1300 / 1300 1000 / 1000 Other: Meal Dinner Percent of Meal Consumed 100% # Voids 1 1 Weight 176 lb Medical - DS: Data Labs on day of discharge: Labs from last 24 hours 01/31/17 01/31/17 05:27 05:27 WBC 6.8 RBC 3.59 L Hgb 10.8 L Hct 31.0 L MCV 86.3 MCH 30.1 MCHC 34.9 RDW 13.1 Plt Count 243 MPV 7.8 Gran % 66.5 Lymph % (Auto) 20.9 [place] % (Auto) 7.7 Eos % (Auto) 4.7 Baso % (Auto) 0.2 Gran # 4.5 Lymph # 1.4 L [place] # 0.5 Eos # 0.3 Baso # 0 Sodium 136 Potassium 4.6 Chloride 102 Carbon Dioxide 21 L Anion Gap 13.0 BUN 20 Creatinine 1.0 GFR Calculation 52 Glucose 282 H Uric Acid 5.7 Calcium 9.0 Phosphorus 3.2 Magnesium 1.8 Total Bilirubin 0.4 Direct Bilirubin < 0.2 GGT 14 AST 16 ALT 16 Alkaline Phosphatase 91 Lactate Dehydrogenase 126 Total Protein 6.0 Albumin 3.5 Globulin 2.5 Albumin/Globulin Ratio 1.4 Triglycerides 424 H january 31: urine culture is growing Klebsiella oxytoca, which is resistant to ampicillin, Ancef, Cipro Levaquin, tetracycline, Bactrim. it is sensitive to aztreonam, cefepime, cefoxitin, cefuroxime, gentamicin, meropenem, nitrofurantoin, Zosyn january 30: -C. difficile screen is negative. -Blood cultures are negative so far -Urine culture is growing greater than 100,000 gram-negative bacilli , ID to follow January 29: CBC differential shows 9800 neutrophils lactic acid is elevated at 2.4 lactic acid #2, was normal at 2.0 urinalysis: Shows 30 mg of protein, 150 mg of glucose, 500 leukocyte esterase greater than 180 white blood cells many bacteria chest x-ray:showed mild cardiomegaly, unchanged from previous. There is minimal basilar atelectasis. Medical - DS: A/P - Patient/Caregiver Discharge Instructions Activity: increase activity as tolerated Diet: Consistent Carbohydrate Additional Instructions: #1. Please take antibiotic as directed. #2. Please see her primary care physician for a recheck in the next 1-2 weeks. #3. Please see Urologist, Dr. Garcia, as scheduled, towards the end of the month. Please review whether he wants you to go back on the chronic Cipro, or other antibiotic, for suppression. Prescriptions: Nitrofurantoin Monohyd/M-Cryst [Macrobid 100 mg Capsule] 100 mg PO BID #14 capsule - Problem Maintenance (1) Nausea and vomiting in adult Status: Resolved (2) Dehydration Status: Resolved (3) Diarrhea Status: Resolved (4) CKD (chronic kidney disease), stage II Status: Chronic Comment: creat stable, follows with Nephrology, continue to monitor, etiology DM and HTN likely. 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 - Follow up Plan Follow up with: Brandon Nunez DO [Primary Care Provider] - (Patient's family will make an appointment in 7-14 days.) North Garcia MD [Physician] - 02/18/17 11:15 am Disposition: Home, Self-Care Prognosis: Good Rehab Potential: Good Overall status at discharge: patient is progressing back to baseline Medical - DS: Qual - VTE Deep Vein Thrombosis/Pulmonary Embolism Present on Admission: No
[2017-02-01] MEDS ORDERED: metFORMIN 500 MG TABLET PO SCH (08:00)
== END 2017-01-31 15:37 | disposition home or self-care (01) ==
LOC: MEDSUR 08:50 → ED 08:50 → MEDSUR 12:35
PROVIDERS: ADMIT Internal Medicine; ATTEND Internal Medicine

== ENCOUNTER 2018-07-05 05:08 | Inpatient (IN) ==
--- NOTE | 2018-06-30 15:24 | XRay Report ---
INDICATION: Preoperative evaluation TECHNIQUE: PA and lateral upright chest x-ray COMPARISON: Chest x-rays dated 01/29/2017 and 10/21/2015 FINDINGS: Lungs are negative. No parenchymal infiltrate or mass. Heart size and vascularity are normal. Margie and mediastinum are negative. No pleural fluid. No acute abnormality or interval change IMPRESSION: Negative PA and lateral chest x-ray Interpreted and Authenticated by: Brandon Rebolledo 06/30/18
[2018-06-30 17:37] LABS: Basophils # (Auto) 0 K/mcL (0.0-0.3); Basophils % (Auto) 0.3 % (0.0-2.0); Eosinophils # (Auto) 0.2 K/mcL (0.0-0.7); Eosinophils % (Auto) 1.9 % (0.0-7.0); Granulocytes % (Auto) 70.9 % (38.0-78.0); Lymphocytes % (Auto) 19.4 % (15.5-49.0); Mean Corpuscular HGB Conc 33.2 g/dL (31.0-36.0); Mean Corpuscular Hemoglobin 29.2 pg (26.0-34.0); Monocytes # (Auto) 0.8 K/mcL (0.1-0.9); Monocytes % (Auto) 7.5 % (1.0-12.0); Platelet Count 323 K/mcL (140-440); RBC 4.18 M/mcL (4.00-5.20); Red Cell Distribution Width 13.7 % (11.5-14.5)
[2018-06-30 17:58] LABS: ALT/SGPT 10 U/l (0-40); Albumin 3.9 gm/dL (3.2-5.2); Albumin/Globulin Ratio 1.4 (1.0-2.3); Alkaline Phosphatase 87 U/L (39-117); Blood Urea Nitrogen 22 mg/dl (8-23)
[2018-06-30 18:54] LABS: Estimated Average Glucose(eAG) 186 mg/dL; Hemoglobin A1C 8.1 % HGB (4.0-6.0)
[2018-07-05] MEDS ORDERED: LEVOFLOXACIN 750 MG/150 ML BAG IV ONE (07:21)
[2018-07-05] MEDS ORDERED: MIDAZOLAM 2 MG/2 ML VIAL IV ONE (07:40)
[2018-07-05] MEDS ORDERED: PROPOFOL 200 MG/20 ML VIAL IV ONE (07:40)
[2018-07-05] MEDS ORDERED: GLYCOPYRROLATE 0.2 MG/ML VIAL IV ONE (07:40)
[2018-07-05] MEDS ORDERED: KETAMINE 100 MG/ML ML IV ONE (07:40)
[2018-07-05] MEDS ORDERED: fentaNYL 250 MCG/5 ML VIAL IV ONE (07:40)
[2018-07-05] MEDS ORDERED: PHENYLEPHRINE 10 MG/ML VIAL IV ONE (07:40)
[2018-07-05] MEDS ORDERED: ONDANSETRON 4 MG/2 ML VIAL IV ONE (07:40)
[2018-07-05] MEDS ORDERED: LIDOCAINE HCL/PF 100 MG/5 ML SYRINGE IV ONE (07:40)
[2018-07-05] MEDS ORDERED: VANCOMYCIN 1,000 MG in 0.9 % SODIUM CHLORIDE 250 ML IV SCH (09:00)
[2018-07-05] MEDS ORDERED: IPRATROPIUM/ALBUTEROL 3 ML AMPUL.NEB NEB PRN (10:02)
[2018-07-05] MEDS ORDERED: HYDROmorphone 2 MG/ML VIAL IV PRN ×2 (10:02→11:05)
[2018-07-05] MEDS ORDERED: MEPERIDINE 25 MG/ML SYRINGE IV PRN (10:02)
[2018-07-05] MEDS ORDERED: ACETAMINOPHEN 1,000 MG/100 ML BOTTLE IV ONE (10:02)
[2018-07-05] MEDS ORDERED: fentaNYL 100 MCG/2 ML VIAL IV PRN (10:02)
[2018-07-05] MEDS ORDERED: ONDANSETRON 4 MG/2 ML VIAL IV PRN (10:02)
[2018-07-05] MEDS ORDERED: LACTATED RINGERS 1,000 ML IV SCH (10:15)
--- NOTE | 2018-07-05 11:04 | Brief Operative Note ---
Date of procedure: 07/05/18 Pre-op diagnosis: cutaneous fistula Post-op diagnosis: other (infected mesh with subfascial abscess and fistula; incisional hernia) Procedure: excision of fistulous tract down to peritoneal cavity; explantation of lower 1/ 3 of mesh ;incisional hernia repair with mesh Grafts/Implants: Yes (surgimesh) Anesthesia: GETA Complications: none Surgeon: Cruz Alaniz Estimated blood loss (cc): 25 Specimens Removed/Pathology: other (wound cultures ; fistulous tract; mesh graft ) Condition: stable Disposition: PACU
[2018-07-05] MEDS ORDERED: oxyCODONE HCL 5 MG TABLET PO PRN (11:05)
[2018-07-05] MEDS ORDERED: 0.9 % SODIUM CHLORIDE 1,000 ML IV SCH (11:15)
[2018-07-05] MEDS ORDERED: BACITRACIN 50,000 UNIT VIAL IR ONE (11:17)
[2018-07-05] MEDS ORDERED: PROMETHAZINE 25 MG/ML VIAL IV PRN (11:26)
[2018-07-05] MEDS ORDERED: VANCOMYCIN 1 GM VIAL TOPICAL SCH (11:30)
[2018-07-05] MEDS ORDERED: PROMETHAZINE 25 MG/ML VIAL ONE (11:35)
[2018-07-05] MEDS ORDERED: VANCOMYCIN 1 GM VIAL TOPICAL ONE (12:15)
[2018-07-05] MEDS: 0.9 % SODIUM CHLORIDE 10 ML SYRINGE IV SCH ×2 (14:40→21:33)
[2018-07-05] MEDS ORDERED: FUROSEMIDE 20 MG TABLET PO PRN (14:54)
[2018-07-05] MEDS: glipiZIDE 5 MG TABLET PO SCH (17:13)
[2018-07-05] MEDS: metFORMIN 500 MG TABLET PO SCH (17:14)
[2018-07-05] MEDS: VANCOMYCIN IRR SCH (21:32)
[2018-07-05] MEDS: SODIUM CHLORIDE IRRIG IRR SCH (21:32)
[2018-07-06] MEDS: ONDANSETRON 4 MG/2 ML VIAL IV PRN ×2 (00:36→07:41)
[2018-07-06] MEDS: 0.9 % SODIUM CHLORIDE 10 ML SYRINGE IV SCH ×3 (05:53→21:07)
[2018-07-06 07:41] LABS: ALT/SGPT 7 U/l (0-40); Albumin 3.1 gm/dL (3.2-5.2); Albumin/Globulin Ratio 1.5 (1.0-2.3); Alkaline Phosphatase 60 U/L (39-117); Bilirubin,Direct < 0.2 mg/dL (0.0-0.3); Blood Urea Nitrogen 28 mg/dl (8-23); Gamma Glutamyl Transpeptidase 7 U/L (5-36); Uric Acid 6.9 mg/dL (2.5-8.0)
[2018-07-06] MEDS ORDERED: LEVOFLOXACIN 500 MG/100 ML BAG IV SCH (09:00)
[2018-07-06] MEDS ORDERED: BENZOCAINE/MENTHOL 1 LOZENGE PO PRN (09:07)
[2018-07-06] MEDS: metFORMIN 500 MG TABLET PO SCH ×2 (09:20→17:03)
[2018-07-06] MEDS: glipiZIDE 5 MG TABLET PO SCH ×2 (09:21→17:03)
[2018-07-06] MEDS: ASPIRIN 81 MG TAB.CHEW PO SCH (09:21)
[2018-07-06] MEDS: SODIUM CHLORIDE IRRIG IRR SCH ×2 (09:21→21:05)
[2018-07-06] MEDS: VANCOMYCIN IRR SCH ×2 (09:21→21:05)
[2018-07-06] MEDS: LISINOPRIL 20 MG TABLET PO SCH (09:29)
[2018-07-06 13:37] LABS: Appearance,Urine TURBID; Bacteria,Urine 0 /hpf (0); Bilirubin,Urine NEG (NEG); Color,Urine YELLOW; Glucose,Urine (UA) >=500 mg/dL (NEG); Leukocyte Esterase,Urine 250 /uL (NEG); Protein,Urine 100 mg/dL (NEG); Specific Gravity,Urine 1.012 (1.000-1.035); Urine Blood 0.03 mg/dL (<0.03); Urine Budding Yeast MANY /hpf (0); Urine RBC 129 /hpf (0-1); Urine Squamous Epithelial Cell 0 /hpf (0-4); Urine WBC > 182 /hpf (0-4); Urobilinogen,Urine NEG (NEG)
--- NOTE | 2018-07-06 14:29 | Operative Note ---
DATE OF OPERATION: 07/05/2018 PREOPERATIVE DIAGNOSIS: Cutaneous fistula. POSTOPERATIVE DIAGNOSES: 1. 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 2. Recurrent incisional hernia. PROCEDURE: Excision of fistulous tract down to the peritoneal cavity with explantation of the lower one-third of the mesh and incisional hernia repair with placement of Surgimesh. FINDINGS: Infected graft with dehiscence of the lower end of mesh graft from the lower abdominal fascia. There was a tissue fluid which appeared to be purulent that was sent for Gram stain. According to the Gram stain it contained multiple red cells and white cells but no organisms. This is in line with the fact that multiple cultures previously did not grow any organisms. There, however, was a large amount of purulence surrounding a very old mesh that was placed as an interposition graft without any covering from the muscle or fascia. The fistulous tract was followed as far as it extended over and below the mesh graft. There were multiple braided sutures that were holding the graft in place. These were removed. The dissection continued until the graft appeared to be covered with a pseudomembrane. The pseudomembrane was from the undersurface of the graft and about the lower one-third of the graft was excised. Copious irrigation was carried out using concentrated bacitracin solution. Next, a sheet of Surgimesh was chosen and fashioned. The proximal portion of the Surgimesh was sutured to the lower end of the old mesh recognizing that this was not the most optimal situation, but the whole anterior surface of her abdominal wall contains this solid mass and in this elderly, ___ lady it would be too heroic a procedure to try to remove all of the mesh. There were 3 loops of bowel that were densely adherent to the undersurface of the mesh and this was taken down using Metzenbaum scissors. This pseudomembrane that covered most of the mesh graft was left intact for later use. Once I was sure that all bowel was free from the undersurface of the graft, the lateral margins and the inferior margin of the Surgimesh was sutured to the undersurface of the fascia in the lower abdomen. This was done with multiple interrupted sutures of 0 Prolene. The pseudomembrane which was fairly fibrotic and thick was closed using running 2-0 Monocryl. This the Surgimesh from the peritoneal cavity. A gastrointestinal feeding tube was then laid over the pseudomembrane and below the Surgimesh. This was brought out laterally on the left and would be used for infusion of vancomycin. The area was irrigated with vancomycin solution with 2 grams of vancomycin and 250 mL of saline. The sutures in the Surgimesh were then tied and there was a snug fit. A #7 [place] Raul drain was placed over the graft for future aspiration prior to closure of the muscle and fascia. The graft was also covered with full strength vancomycin powder. The subcutaneous tissue was drained with another #7 [place] Raul drain. Subcutaneous tissue was closed with 2-0 Monocryl suture. The drains and the infusion catheter were secured with 2-0 nylon. The skin was closed with berry. The patient tolerated the procedure well. Tegaderm dressing was placed. She was awakened and transferred to a bed and taken to the postanesthetic care unit in stable, satisfactory condition. LCS:trace Job ID: [id number] Doc ID: [id number] Cruz Alaniz M.D.
--- NOTE | 2018-07-06 15:22 | General Surgery Progress Note ---
Subjective Patient reports: feels better, pain is less, tolerating a regular diet, flatus, afebrile Narrative: Note initiated : 07/06/18 at 3:19 pm Service Date, if different from initiated Date: [] Patient: Chloe Benitez 82 y/o F admitted on 07/05/18 for Debridement and Primary Closure of Abdominal. Chief Complaint: [Patient had nausea earlier this morning but feels better now. Her urine is very cloudy and based on prior urine she probably has the [place] infection. She will be taken off of the Levaquin so that she can be treated with Diflucan IV. There is no difficulty with her irrigations so far. The plan is to continue this and the IV antibiotics for 5 days after which she will go home on oral doxycycline and continue the vancomycin irrigation 2 more weeks.] Objective Temp Pulse Resp BP Pulse Ox 97.5 F 76 14 101/63 96 07/06/18 11:45 07/06/18 11:45 07/06/18 11:45 07/06/18 11:45 07/06/18 11:45 - Additional Data Intake & Output - Last 24 hours: Intake & Output 07/04/18 07/05/18 07/06/18 07/07/18 05:59 05:59 05:59 05:59 Intake Total 3010 / 3010 240 / 240 Output Total 1242 / 1242 470 / 470 Balance 1768 / 1768 -230 / -230 Weight 169 lb 178 lb 178 lb - General physical appearance well developed, well nourished, no distress - Eyes PERRL, normal ocular movement - ENT normal pinna, normal nares, normal mucosa, no congestion, decreased hearing - Neck no masses, no bruits, trachea midline, no lymphadenopathy, no venous distension - Respiratory normal expansion, normal respiratory effort, clear to percussion, clear to auscultation - Cardiovascular Cardiovascular exam: Present: normal rate and rhythm, RRR, +S1, +S2. Absent: JVD, tachycardia - Abdomen tender (incision looks unremarkable; the irrigations are proceeding without difficulty.) - Integumentary no rash, no growths, no abnormal pigmentation - Neurologic normal coordination, normal sensation - Musculoskeletal normal gait, normal posture - Psychiatric oriented to time, oriented to person, oriented to place, speech is normal, memory intact - Labs 06/30/18 15:32 07/06/18 04:32 Diabetes panel 07/06/18 Range/Units 04:32 Sodium 135 (133-145) mmol/L Potassium 4.7 (3.3-5.1) mmol/L Chloride 102 (96-108) mmol/L Carbon Dioxide 21 L (22-30) mmol/L BUN 28 H (8-23) mg/dl Creatinine 1.5 H (0.6-1.1) mg/dl Glucose 149 H (70-105) mg/dL Calcium 8.6 (8.6-10.4) mg/dl AST 10 (0-37) U/l ALT 7 (0-40) U/l Alkaline Phosphatase 60 (39-117) U/L Total Protein 5.2 L (5.9-8.4) gm/dL Albumin 3.1 L (3.2-5.2) gm/dL Triglycerides 155 H (<150) mg/dl Calcium panel 07/06/18 Range/Units 04:32 Calcium 8.6 (8.6-10.4) mg/dl Phosphorus 3.9 (2.7-4.5) mg/dL Albumin 3.1 L (3.2-5.2) gm/dL Pituitary panel 07/06/18 Range/Units 04:32 Sodium 135 (133-145) mmol/L Potassium 4.7 (3.3-5.1) mmol/L Chloride 102 (96-108) mmol/L Carbon Dioxide 21 L (22-30) mmol/L BUN 28 H (8-23) mg/dl Creatinine 1.5 H (0.6-1.1) mg/dl Glucose 149 H (70-105) mg/dL Calcium 8.6 (8.6-10.4) mg/dl Adrenal panel 07/06/18 Range/Units 04:32 Sodium 135 (133-145) mmol/L Potassium 4.7 (3.3-5.1) mmol/L Chloride 102 (96-108) mmol/L Carbon Dioxide 21 L (22-30) mmol/L BUN 28 H (8-23) mg/dl Creatinine 1.5 H (0.6-1.1) mg/dl Glucose 149 H (70-105) mg/dL Calcium 8.6 (8.6-10.4) mg/dl Total Bilirubin 0.6 (0.0-1.0) mg/dL AST 10 (0-37) U/l ALT 7 (0-40) U/l Alkaline Phosphatase 60 (39-117) U/L Total Protein 5.2 L (5.9-8.4) gm/dL Albumin 3.1 L (3.2-5.2) gm/dL Assessment and Plan (1) Cutaneous fistula Status: Acute Current Visit: Yes (2) Infection of graft Status: Acute Assessment and plan: Continued irrigation with vancomycin twice daily Current Visit: Yes (3) Urinary tract infection Status: Acute Assessment and plan: Diflucan 200 mg IV daily Follow-up urine cultures DC Levaquin Start IV doxycycline Current Visit: No - Time Spent With Patient Total time spent is greater than 50% in coordination of care (as documented) at patient's floor/unit and/or counseling patient:
[2018-07-06] MEDS: FLUCONAZOLE 200 MG/100 ML BAG IV SCH (16:09)
[2018-07-06] MEDS: DOXYCYCLINE 100 MG in DEXTROSE 5% IN WATER 100 ML IV SCH (17:03)
[2018-07-07] MEDS: DOXYCYCLINE 100 MG in DEXTROSE 5% IN WATER 100 ML IV SCH ×3 (00:46→20:23)
[2018-07-07] MEDS: 0.9 % SODIUM CHLORIDE 10 ML SYRINGE IV SCH ×3 (04:50→22:18)
[2018-07-07] MEDS: ONDANSETRON 4 MG/2 ML VIAL IV PRN (04:53)
[2018-07-07 06:31] LABS: Basophils # (Auto) 0 K/mcL (0.0-0.3); Basophils % (Auto) 0.4 % (0.0-2.0); Eosinophils # (Auto) 0.5 K/mcL (0.0-0.7); Eosinophils % (Auto) 6.2 % (0.0-7.0); Granulocytes % (Auto) 68.5 % (38.0-78.0); Lymphocytes % (Auto) 13.8 % (15.5-49.0); Mean Cell Volume 88.3 fL (80.0-100.0); Mean Corpuscular HGB Conc 33.4 g/dL (31.0-36.0); Mean Corpuscular Hemoglobin 29.5 pg (26.0-34.0); Monocytes # (Auto) 0.8 K/mcL (0.1-0.9); Monocytes % (Auto) 11.1 % (1.0-12.0); Platelet Count 267 K/mcL (140-440); RBC 3.67 M/mcL (4.00-5.20); Red Cell Distribution Width 13.5 % (11.5-14.5)
[2018-07-07 07:12] LABS: ALT/SGPT 6 U/l (0-40); Albumin 3.2 gm/dL (3.2-5.2); Albumin/Globulin Ratio 1.3 (1.0-2.3); Alkaline Phosphatase 66 U/L (39-117); Bilirubin,Direct < 0.2 mg/dL (0.0-0.3); Blood Urea Nitrogen 29 mg/dl (8-23); Gamma Glutamyl Transpeptidase 8 U/L (5-36); Uric Acid 6.7 mg/dL (2.5-8.0)
[2018-07-07] MEDS: glipiZIDE 5 MG TABLET PO SCH ×2 (07:29→17:07)
[2018-07-07] MEDS: metFORMIN 500 MG TABLET PO SCH ×2 (08:40→17:19)
[2018-07-07] MEDS: VANCOMYCIN IRR SCH ×2 (08:40→20:22)
[2018-07-07] MEDS: SODIUM CHLORIDE IRRIG IRR SCH ×2 (08:40→20:22)
[2018-07-07] MEDS: LISINOPRIL 20 MG TABLET PO SCH (08:40)
[2018-07-07] MEDS: ASPIRIN 81 MG TAB.CHEW PO SCH (08:40)
[2018-07-07] MEDS: FLUCONAZOLE 200 MG/100 ML BAG IV SCH (15:28)
[2018-07-07] MEDS ORDERED: FLUCONAZOLE 200 MG in PREMIX 1 BAG IV SCH (17:15)
--- NOTE | 2018-07-07 17:40 | General Surgery Progress Note ---
Subjective Patient reports: feels better, pain is less, tolerating a regular diet, flatus, bowel movement, afebrile Narrative: Note initiated : 07/07/18 at 5:38 pm Service Date, if different from initiated Date: [] Patient: Chloe Benitez 82 y/o F admitted on 07/05/18 for Debridement and Primary Closure of Abdominal. Chief Complaint: [patient is stable she states that she is not having much discomfort. She denies chest pain or shortness of breath. Her white blood count is 7.5 and hemoglobin was 10 point. BUN 29 with creatinine of 1.4. Urine cultures are still negative For bacteria.] Objective Temp Pulse Resp BP Pulse Ox 98.6 F 87 16 115/63 97 07/07/18 16:00 07/07/18 16:00 07/07/18 16:00 07/07/18 16:00 07/07/18 16:00 - Additional Data Intake & Output - Last 24 hours: Intake & Output 07/05/18 07/06/18 07/07/18 07/08/18 05:59 05:59 05:59 05:59 Intake Total 3010 / 3010 1865 / 1865 950 / 950 Output Total 1242 / 1242 2031 / 2031 416 / 416 Balance 1768 / 1768 -166 / -166 534 / 534 Weight 169 lb 178 lb 174 lb 8 oz - General physical appearance well developed, well nourished, no distress - Eyes PERRL, normal ocular movement - ENT normal pinna, normal nares, normal mucosa, no congestion, decreased hearing - Neck no masses, no bruits, trachea midline, no lymphadenopathy, no venous distension - Respiratory normal expansion, normal respiratory effort, clear to auscultation - Cardiovascular Cardiovascular exam: Present: normal rate and rhythm, RRR, +S1, +S2. Absent: JVD, tachycardia - Abdomen tender (mild incisional tenderness but otherwise abdominal exam is benign), bowel sounds (present), surgical scars (none), masses (none) - Integumentary no rash, no growths, no abnormal pigmentation - Neurologic normal coordination, normal sensation - Psychiatric oriented to time, oriented to person, oriented to place, speech is normal, memory intact - Labs 07/07/18 04:55 07/07/18 04:55 Diabetes panel 07/07/18 Range/Units 04:55 Sodium 139 (133-145) mmol/L Potassium 4.6 (3.3-5.1) mmol/L Chloride 106 (96-108) mmol/L Carbon Dioxide 21 L (22-30) mmol/L BUN 29 H (8-23) mg/dl Creatinine 1.4 H (0.6-1.1) mg/dl Glucose 134 H (70-105) mg/dL Calcium 8.9 (8.6-10.4) mg/dl AST 9 (0-37) U/l ALT 6 (0-40) U/l Alkaline Phosphatase 66 (39-117) U/L Total Protein 5.6 L (5.9-8.4) gm/dL Albumin 3.2 (3.2-5.2) gm/dL Triglycerides 124 (<150) mg/dl Calcium panel 07/07/18 Range/Units 04:55 Calcium 8.9 (8.6-10.4) mg/dl Phosphorus 2.7 (2.7-4.5) mg/dL Albumin 3.2 (3.2-5.2) gm/dL Pituitary panel 07/07/18 Range/Units 04:55 Sodium 139 (133-145) mmol/L Potassium 4.6 (3.3-5.1) mmol/L Chloride 106 (96-108) mmol/L Carbon Dioxide 21 L (22-30) mmol/L BUN 29 H (8-23) mg/dl Creatinine 1.4 H (0.6-1.1) mg/dl Glucose 134 H (70-105) mg/dL Calcium 8.9 (8.6-10.4) mg/dl Adrenal panel 07/07/18 Range/Units 04:55 Sodium 139 (133-145) mmol/L Potassium 4.6 (3.3-5.1) mmol/L Chloride 106 (96-108) mmol/L Carbon Dioxide 21 L (22-30) mmol/L BUN 29 H (8-23) mg/dl Creatinine 1.4 H (0.6-1.1) mg/dl Glucose 134 H (70-105) mg/dL Calcium 8.9 (8.6-10.4) mg/dl Total Bilirubin 0.6 (0.0-1.0) mg/dL AST 9 (0-37) U/l ALT 6 (0-40) U/l Alkaline Phosphatase 66 (39-117) U/L Total Protein 5.6 L (5.9-8.4) gm/dL Albumin 3.2 (3.2-5.2) gm/dL Assessment and Plan (1) Cutaneous fistula Status: Acute Assessment and plan: Will continue present irrigations Current Visit: Yes (2) Infection of graft Status: Acute Assessment and plan: Continued irrigation with vancomycin twice daily Current Visit: Yes (3) Urinary tract infection Status: Acute Assessment and plan: Diflucan 200 mg IV daily Follow-up urine cultures DC Levaquin Start IV doxycycline Current Visit: No - Time Spent With Patient Total time spent is greater than 50% in coordination of care (as documented) at patient's floor/unit and/or counseling patient:
[2018-07-07 20:26] LABS: Vancomycin,Random < 4.0 ug/mL
[2018-07-08] MEDS: 0.9 % SODIUM CHLORIDE 10 ML SYRINGE IV SCH ×3 (05:31→21:48)
[2018-07-08 06:19] LABS: Basophils # (Auto) 0 K/mcL (0.0-0.3); Basophils % (Auto) 0.2 % (0.0-2.0); Eosinophils # (Auto) 0.5 K/mcL (0.0-0.7); Granulocytes % (Auto) 66.5 % (38.0-78.0); Lymphocytes # (Auto) 1.5 K/mcL (1.5-4.8); Lymphocytes % (Auto) 17.3 % (15.5-49.0); Mean Cell Volume 88.3 fL (80.0-100.0); Mean Corpuscular HGB Conc 33.5 g/dL (31.0-36.0); Mean Corpuscular Hemoglobin 29.6 pg (26.0-34.0); Monocytes # (Auto) 0.8 K/mcL (0.1-0.9); Platelet Count 311 K/mcL (140-440); RBC 3.88 M/mcL (4.00-5.20); Red Cell Distribution Width 13.5 % (11.5-14.5)
[2018-07-08 06:25] LABS: ALT/SGPT 7 U/l (0-40); Albumin 3.5 gm/dL (3.2-5.2); Albumin/Globulin Ratio 1.3 (1.0-2.3); Alkaline Phosphatase 68 U/L (39-117); Bilirubin,Direct < 0.2 mg/dL (0.0-0.3); Blood Urea Nitrogen 30 mg/dl (8-23); Gamma Glutamyl Transpeptidase 9 U/L (5-36); Uric Acid 7.3 mg/dL (2.5-8.0)
[2018-07-08] MEDS: glipiZIDE 5 MG TABLET PO SCH ×2 (07:58→17:47)
[2018-07-08] MEDS: ASPIRIN 81 MG TAB.CHEW PO SCH (07:58)
[2018-07-08] MEDS: metFORMIN 500 MG TABLET PO SCH ×2 (07:58→17:47)
[2018-07-08] MEDS: LISINOPRIL 20 MG TABLET PO SCH (07:58)
[2018-07-08] MEDS: DOXYCYCLINE 100 MG in DEXTROSE 5% IN WATER 100 ML IV SCH ×2 (09:53→21:37)
[2018-07-08] MEDS: SODIUM CHLORIDE IRRIG IRR SCH ×2 (09:53→21:37)
[2018-07-08] MEDS: VANCOMYCIN IRR SCH ×2 (09:53→21:37)
[2018-07-08] MEDS: FLUCONAZOLE 200 MG in PREMIX 1 BAG IV SCH (10:55)
--- NOTE | 2018-07-08 16:02 | General Surgery Progress Note ---
Subjective Narrative: Note initiated : 07/08/18 at 4:02 pm Service Date, if different from initiated Date: [] Patient: Chloe Benitez 82 y/o F admitted on 07/05/18 for Debridement and Primary Closure of Abdominal. Chief Complaint: [] Objective Temp Pulse Resp BP Pulse Ox 98.6 F 75 14 119/64 94 07/08/18 11:33 07/08/18 11:33 07/08/18 11:33 07/08/18 11:33 07/08/18 11:33 - Additional Data Intake & Output - Last 24 hours: Intake & Output 07/06/18 07/07/18 07/08/18 07/09/18 05:59 05:59 05:59 05:59 Intake Total 3010 / 3010 1865 / 1865 1160 / 1160 240 / 240 Output Total 1242 / 1242 203 / 2031 1545 / 1545 1625 / 1625 Balance 1768 / 1768 -166 / -166 -385 / -385 -1385 / -1385 Weight 178 lb 174 lb 8 oz 176 lb 8 oz - Labs 07/08/18 04:45 07/08/18 04:45 Diabetes panel 07/08/18 Range/Units 04:45 Sodium 138 (133-145) mmol/L Potassium 4.8 (3.3-5.1) mmol/L Chloride 103 (96-108) mmol/L Carbon Dioxide 21 L (22-30) mmol/L BUN 30 H (8-23) mg/dl Creatinine 1.5 H (0.6-1.1) mg/dl Glucose 131 H (70-105) mg/dL Calcium 9.7 (8.6-10.4) mg/dl AST 10 (0-37) U/l ALT 7 (0-40) U/l Alkaline Phosphatase 68 (39-117) U/L Total Protein 6.3 (5.9-8.4) gm/dL Albumin 3.5 (3.2-5.2) gm/dL Triglycerides 131 (<150) mg/dl Calcium panel 07/08/18 Range/Units 04:45 Calcium 9.7 (8.6-10.4) mg/dl Phosphorus 3.3 (2.7-4.5) mg/dL Albumin 3.5 (3.2-5.2) gm/dL Pituitary panel 07/08/18 Range/Units 04:45 Sodium 138 (133-145) mmol/L Potassium 4.8 (3.3-5.1) mmol/L Chloride 103 (96-108) mmol/L Carbon Dioxide 21 L (22-30) mmol/L BUN 30 H (8-23) mg/dl Creatinine 1.5 H (0.6-1.1) mg/dl Glucose 131 H (70-105) mg/dL Calcium 9.7 (8.6-10.4) mg/dl Adrenal panel 07/08/18 Range/Units 04:45 Sodium 138 (133-145) mmol/L Potassium 4.8 (3.3-5.1) mmol/L Chloride 103 (96-108) mmol/L Carbon Dioxide 21 L (22-30) mmol/L BUN 30 H (8-23) mg/dl Creatinine 1.5 H (0.6-1.1) mg/dl Glucose 131 H (70-105) mg/dL Calcium 9.7 (8.6-10.4) mg/dl Total Bilirubin 0.5 (0.0-1.0) mg/dL AST 10 (0-37) U/l ALT 7 (0-40) U/l Alkaline Phosphatase 68 (39-117) U/L Total Protein 6.3 (5.9-8.4) gm/dL Albumin 3.5 (3.2-5.2) gm/dL Assessment and Plan (1) Cutaneous fistula Status: Acute Assessment and plan: Will continue present irrigations Current Visit: Yes (2) Infection of graft Status: Acute Assessment and plan: Continued irrigation with vancomycin twice daily Current Visit: Yes (3) Urinary tract infection Status: Acute Assessment and plan: Diflucan 200 mg IV daily Follow-up urine cultures DC Levaquin Start IV doxycycline Current Visit: No - Time Spent With Patient Total time spent is greater than 50% in coordination of care (as documented) at patient's floor/unit and/or counseling patient:
[2018-07-09] MEDS: 0.9 % SODIUM CHLORIDE 10 ML SYRINGE IV SCH ×3 (04:59→20:44)
[2018-07-09 05:17] LABS: Basophils # (Auto) 0 K/mcL (0.0-0.3); Basophils % (Auto) 0.2 % (0.0-2.0); Eosinophils # (Auto) 0.4 K/mcL (0.0-0.7); Eosinophils % (Auto) 7.3 % (0.0-7.0); Granulocytes % (Auto) 62.2 % (38.0-78.0); Lymphocytes # (Auto) 1.3 K/mcL (1.5-4.8); Lymphocytes % (Auto) 20.6 % (15.5-49.0); Mean Cell Volume 88.5 fL (80.0-100.0); Mean Corpuscular HGB Conc 33.3 g/dL (31.0-36.0); Mean Corpuscular Hemoglobin 29.5 pg (26.0-34.0); Monocytes # (Auto) 0.6 K/mcL (0.1-0.9); Monocytes % (Auto) 9.7 % (1.0-12.0); Platelet Count 304 K/mcL (140-440); RBC 3.56 M/mcL (4.00-5.20); Red Cell Distribution Width 13.3 % (11.5-14.5)
[2018-07-09 05:34] LABS: ALT/SGPT 8 U/l (0-40); Albumin 3.1 gm/dL (3.2-5.2); Albumin/Globulin Ratio 1.2 (1.0-2.3); Alkaline Phosphatase 63 U/L (39-117); Bilirubin,Direct < 0.2 mg/dL (0.0-0.3); Blood Urea Nitrogen 32 mg/dl (8-23); Gamma Glutamyl Transpeptidase 8 U/L (5-36); Uric Acid 6.4 mg/dL (2.5-8.0)
[2018-07-09] MEDS: LISINOPRIL 20 MG TABLET PO SCH (08:18)
[2018-07-09] MEDS: metFORMIN 500 MG TABLET PO SCH ×2 (08:18→17:17)
[2018-07-09] MEDS: ASPIRIN 81 MG TAB.CHEW PO SCH (08:18)
[2018-07-09] MEDS: glipiZIDE 5 MG TABLET PO SCH ×2 (08:18→17:18)
[2018-07-09] MEDS: VANCOMYCIN IRR SCH ×2 (08:19→21:01)
[2018-07-09] MEDS: SODIUM CHLORIDE IRRIG IRR SCH ×2 (08:19→21:01)
[2018-07-09] MEDS: DOXYCYCLINE 100 MG in DEXTROSE 5% IN WATER 100 ML IV SCH ×2 (09:06→20:44)
[2018-07-09] MEDS: FLUCONAZOLE 200 MG in PREMIX 1 BAG IV SCH (09:07)
--- NOTE | 2018-07-09 15:38 | General Surgery Progress Note ---
Subjective Patient reports: feels better, pain is less, voiding w/o difficulty, flatus, bowel movement, afebrile Narrative: Note initiated : 07/09/18 at 3:36 pm Service Date, if different from initiated Date: [] Patient: Chloe Benitez 82 y/o F admitted on 07/05/18 for Debridement and Primary Closure of Abdominal. Chief Complaint: [patient is doing well.. The irrigations are proceeding without difficulty. BUN and creatinine are still mildly elevated. White blood count 6.1 hemoglobin 10.5; urine grew out Alissa glabrata.. Culture for bacteria is negative so far and anaerobic and aerobic cultures] Objective Temp Pulse Resp BP Pulse Ox 99 F 65 20 130/65 96 07/09/18 15:25 07/09/18 11:41 07/09/18 15:25 07/09/18 15:25 07/09/18 15:25 - Additional Data Intake & Output - Last 24 hours: Intake & Output 07/07/18 07/08/18 07/09/18 07/10/18 05:59 05:59 05:59 05:59 Intake Total 1865 / 1865 1160 / 1160 1350 / 1350 800 / 800 Output Total 2030 / 2030 1545 / 1545 2929 / 2929 850 / 850 Balance -166 / -166 -385 / -385 -1579 / -1579 -50 / -50 Weight 174 lb 8 oz 176 lb 8 oz 173 lb - General physical appearance well developed, well nourished, no distress - Eyes PERRL, normal ocular movement - ENT normal pinna, normal nares, normal mucosa, no congestion, decreased hearing - Neck no masses, no bruits, trachea midline, no lymphadenopathy, no venous distension - Respiratory normal expansion, normal respiratory effort, clear to auscultation - Cardiovascular Cardiovascular exam: Present: normal rate and rhythm, RRR, +S1, +S2. Absent: JVD, tachycardia - Abdomen tender (mild incisional tenderness otherwise abdominal exam is benign) - Musculoskeletal normal gait, normal posture - Psychiatric oriented to time, oriented to person, oriented to place, speech is normal, memory intact - Labs 07/09/18 04:00 07/09/18 04:00 Diabetes panel 07/09/18 Range/Units 04:00 Sodium 137 (133-145) mmol/L Potassium 4.7 (3.3-5.1) mmol/L Chloride 104 (96-108) mmol/L Carbon Dioxide 22 (22-30) mmol/L BUN 32 H (8-23) mg/dl Creatinine 1.3 H (0.6-1.1) mg/dl Glucose 124 H (70-105) mg/dL Calcium 9.3 (8.6-10.4) mg/dl AST 10 (0-37) U/l ALT 8 (0-40) U/l Alkaline Phosphatase 63 (39-117) U/L Total Protein 5.7 L (5.9-8.4) gm/dL Albumin 3.1 L (3.2-5.2) gm/dL Triglycerides 148 (<150) mg/dl Calcium panel 07/09/18 Range/Units 04:00 Calcium 9.3 (8.6-10.4) mg/dl Phosphorus 3.6 (2.7-4.5) mg/dL Albumin 3.1 L (3.2-5.2) gm/dL Pituitary panel 07/09/18 Range/Units 04:00 Sodium 137 (133-145) mmol/L Potassium 4.7 (3.3-5.1) mmol/L Chloride 104 (96-108) mmol/L Carbon Dioxide 22 (22-30) mmol/L BUN 32 H (8-23) mg/dl Creatinine 1.3 H (0.6-1.1) mg/dl Glucose 124 H (70-105) mg/dL Calcium 9.3 (8.6-10.4) mg/dl Adrenal panel 07/09/18 Range/Units 04:00 Sodium 137 (133-145) mmol/L Potassium 4.7 (3.3-5.1) mmol/L Chloride 104 (96-108) mmol/L Carbon Dioxide 22 (22-30) mmol/L BUN 32 H (8-23) mg/dl Creatinine 1.3 H (0.6-1.1) mg/dl Glucose 124 H (70-105) mg/dL Calcium 9.3 (8.6-10.4) mg/dl Total Bilirubin 0.4 (0.0-1.0) mg/dL AST 10 (0-37) U/l ALT 8 (0-40) U/l Alkaline Phosphatase 63 (39-117) U/L Total Protein 5.7 L (5.9-8.4) gm/dL Albumin 3.1 L (3.2-5.2) gm/dL Assessment and Plan (1) Cutaneous fistula Status: Acute Assessment and plan: Will continue present irrigations Follow-up final cultures tomorrow Current Visit: Yes (2) Infection of graft Status: Acute Assessment and plan: Continued irrigation with vancomycin twice daily Current Visit: Yes (3) Urinary tract infection Status: Acute Assessment and plan: Diflucan 200 mg IV daily Current Visit: No - Time Spent With Patient Total time spent is greater than 50% in coordination of care (as documented) at patient's floor/unit and/or counseling patient:
[2018-07-10 06:24] LABS: Basophils # (Auto) 0 K/mcL (0.0-0.3); Basophils % (Auto) 0.1 % (0.0-2.0); Eosinophils # (Auto) 0.5 K/mcL (0.0-0.7); Eosinophils % (Auto) 6.8 % (0.0-7.0); Granulocytes % (Auto) 63.6 % (38.0-78.0); Lymphocytes # (Auto) 1.4 K/mcL (1.5-4.8); Lymphocytes % (Auto) 19.9 % (15.5-49.0); Mean Cell Volume 88.1 fL (80.0-100.0); Mean Corpuscular Hemoglobin 29.1 pg (26.0-34.0); Monocytes # (Auto) 0.7 K/mcL (0.1-0.9); Monocytes % (Auto) 9.6 % (1.0-12.0); Platelet Count 340 K/mcL (140-440); RBC 3.72 M/mcL (4.00-5.20); Red Cell Distribution Width 13.6 % (11.5-14.5)
[2018-07-10] MEDS: 0.9 % SODIUM CHLORIDE 10 ML SYRINGE IV SCH ×3 (07:13→20:44)
[2018-07-10] MEDS: glipiZIDE 5 MG TABLET PO SCH ×2 (07:57→16:35)
[2018-07-10] MEDS: metFORMIN 500 MG TABLET PO SCH ×2 (07:57→17:20)
[2018-07-10] MEDS: ASPIRIN 81 MG TAB.CHEW PO SCH (08:55)
[2018-07-10] MEDS: LISINOPRIL 20 MG TABLET PO SCH (08:55)
[2018-07-10] MEDS: FLUCONAZOLE 200 MG in PREMIX 1 BAG IV SCH (08:56)
[2018-07-10] MEDS: SODIUM CHLORIDE IRRIG IRR SCH ×2 (08:56→20:44)
[2018-07-10] MEDS: VANCOMYCIN IRR SCH ×2 (08:56→20:44)
[2018-07-10] MEDS: DOXYCYCLINE 100 MG in DEXTROSE 5% IN WATER 100 ML IV SCH (10:17)
--- NOTE | 2018-07-10 16:01 | General Surgery Progress Note ---
Subjective Patient reports: feels better, pain is less, tolerating a regular diet, afebrile Narrative: Note initiated : 07/10/18 at 3:59 pm Service Date, if different from initiated Date: [] Patient: Chloe Benitez 82 y/o F admitted on 07/05/18 for Debridement and Primary Closure of Abdominal. Chief Complaint: [patient is doing well except for discomfort from her midline intravenous. She Is Afebrile. Her Abdominal Discomfort Well Controlled..] Objective Temp Pulse Resp BP Pulse Ox 99 F 74 20 141/67 97 07/10/18 12:00 07/10/18 08:00 07/10/18 12:00 07/10/18 12:00 07/10/18 12:00 - Additional Data Intake & Output - Last 24 hours: Intake & Output 07/08/18 07/09/18 07/10/18 07/11/18 05:59 05:59 05:59 05:59 Intake Total 1160 / 1160 1350 / 1350 1550 / 1550 1180 / 1180 Output Total 1545 / 1545 2929 / 2929 2306 / 2306 367 / 367 Balance -385 / -385 -1579 / -1579 -756 / -756 813 / 813 Weight 176 lb 8 oz 173 lb 170 lb - General physical appearance well developed, well nourished, no distress - Eyes PERRL, normal ocular movement - ENT normal pinna, normal nares, normal mucosa, no hearing loss, no congestion - Neck no masses, no bruits, trachea midline, no lymphadenopathy, no venous distension - Respiratory normal expansion, normal respiratory effort, clear to auscultation - Cardiovascular Cardiovascular exam: Present: normal rate and rhythm, RRR, +S1, +S2. Absent: JVD, tachycardia - Abdomen tender (mild incisional tenderness with good active bowel sounds) - Integumentary no rash, no growths, no abnormal pigmentation - Neurologic normal coordination, normal sensation - Musculoskeletal normal gait, normal posture - Psychiatric oriented to time ( advised to lay out K), oriented to person, oriented to place , speech is normal, memory intact - Labs 07/10/18 05:00 07/09/18 04:00 Assessment and Plan (1) Cutaneous fistula Status: Acute Assessment and plan: Will continue present irrigations Follow-up final cultures tomorrow Current Visit: Yes (2) Infection of graft Status: Acute Assessment and plan: Continued irrigation with vancomycin twice daily Current Visit: Yes (3) Urinary tract infection Status: Acute Assessment and plan: Diflucan 200 mg IV daily Current Visit: No - Time Spent With Patient Total time spent is greater than 50% in coordination of care (as documented) at patient's floor/unit and/or counseling patient:
[2018-07-10] MEDS ORDERED: HYDROmorphone 2 MG TABLET PO PRN (16:04)
--- NOTE | 2018-07-10 16:17 | General Surgery Progress Note ---
Subjective Patient reports: feels better, pain is less, other (patient is having pain in her right upper arm around the midline catheter. She also has some induration and swelling in the area suggesting infiltration.) Narrative: Note initiated : 07/10/18 at 4:16 pm Service Date, if different from initiated Date: [] Patient: Chloe Benitez 82 y/o F admitted on 07/05/18 for Debridement and Primary Closure of Abdominal. Chief Complaint: [general status is significantly improved.. Patient is switched to oral medication and will be stable for discharge home tomorrow] Objective Temp Pulse Resp BP Pulse Ox 97.7 F 74 20 145/69 95 07/10/18 16:00 07/10/18 08:00 07/10/18 16:00 07/10/18 16:00 07/10/18 16:00 - Additional Data Intake & Output - Last 24 hours: Intake & Output 07/08/18 07/09/18 07/10/18 07/11/18 05:59 05:59 05:59 05:59 Intake Total 1160 / 1160 1350 / 1350 1550 / 1550 1480 / 1480 Output Total 1545 / 1545 2929 / 2929 2306 / 2306 367 / 367 Balance -385 / -385 -1579 / -1579 -756 / -756 1113 / 1113 Weight 176 lb 8 oz 173 lb 170 lb - Labs 07/10/18 05:00 07/09/18 04:00 Assessment and Plan (1) Cutaneous fistula Status: Acute Assessment and plan: Will continue present irrigatiions Current Visit: Yes (2) Infection of graft Status: Acute Assessment and plan: Continued irrigation with vancomycin twice daily Current Visit: Yes (3) Urinary tract infection Status: Acute Assessment and plan: Diflucan 200 mg IV daily Current Visit: No - Time Spent With Patient Total time spent is greater than 50% in coordination of care (as documented) at patient's floor/unit and/or counseling patient:
[2018-07-10] MEDS: DOXYCYCLINE HYCLATE 100 MG TABLET.ORL PO SCH (20:43)
[2018-07-11] MEDS: 0.9 % SODIUM CHLORIDE 10 ML SYRINGE IV SCH (05:46)
[2018-07-11] MEDS: glipiZIDE 5 MG TABLET PO SCH (06:46)
[2018-07-11] MEDS: SODIUM CHLORIDE IRRIG IRR SCH (08:31)
[2018-07-11] MEDS: VANCOMYCIN IRR SCH (08:31)
[2018-07-11] MEDS: metFORMIN 500 MG TABLET PO SCH (08:32)
[2018-07-11] MEDS: LISINOPRIL 20 MG TABLET PO SCH (08:32)
[2018-07-11] MEDS: ASPIRIN 81 MG TAB.CHEW PO SCH (08:32)
[2018-07-11] MEDS: DOXYCYCLINE HYCLATE 100 MG TABLET.ORL PO SCH (08:32)
[2018-07-11] MEDS ORDERED: FLUCONAZOLE 150 MG TABLET PO SCH (09:00)
--- NOTE | 2018-07-11 13:47 | Discharge Summary ---
Providers - Providers Patient information: Note initiated : 07/11/18 at 1:42 pm Service Date, if different from initiated Date: [] Patient: Chloe Benitez 82 y/o F admitted on 07/05/18 for Debridement and Primary Closure of Abdominal. Chief Complaint: [] Date of admission: 07/05/18 Discharge date: 07/11/18 Attending physician: Cruz Alaniz Hospitalization Hospital course: 82-year-old female with history of chronic fistulous track of periumbilical midline. She been treated for months without improvement. The patient was explored on 05 July and was found to have a large collection of purulent drainage surrounding the edge of a mesh graft that had been placed many years ago. This graft was sewn in with ETHIFLEX suture which is abraded suture. Cultures of the drainage in the past have been negative and Gram stain of the drainage intraoperatively did not reveal any organisms. The lower one third of the graft was excised and the hernia defect was closed with surgical mesh which was joined with the old mesh and then placed subfascially in the lower port upper abdomen. The area was irrigated with vancomycin and bacitracin solution. In the postoperative period she has been irrigated with vancomycin solution twice daily with the solution indwelling at least 6 hours each time.. Patient is doing well. She will get vancomycin solution instilled for another 2 weeks after which she will stay on suction for 2 more weeks at which time the drains will be removed. The patient is doing well. She had a yeast urinary tract infection which is being treated with Diflucan and she will be treated with Diflucan for another week at home. sHE is discharged in stable satisfactory condition. 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 Secondary discharge diagnosis: uRINARY TRACT INFECTION DUE TO Alisas species Reason for admission: chronic cutaneous fistula Procedures: wIDE EXCISION OF FISTULOUS TRACT ABDOMINAL WALL WITH EXPLANTATION OF mesh graft Incisional hernia repair with mesh graft Pertinent studies/significant findings: None Complications: nONE Exam Temp Pulse Resp BP Pulse Ox 99.1 F H 85 16 110/58 97 07/11/18 11:47 07/11/18 11:47 07/11/18 11:47 07/11/18 11:47 07/11/18 11:47 - General physical appearance well developed, well nourished, no distress - Eyes PERRL, normal ocular movement - ENT normal pinna, normal nares, normal mucosa, no hearing loss, no congestion - Head Head exam IM: Present: atraumatic, normocephalic - Neck no masses, no bruits, trachea midline, no lymphadenopathy, no venous distension - Cardiovascular Cardiovascular exam IM: Present: normal rate and rhythm - Respiratory normal expansion, normal respiratory effort, clear to percussion, clear to auscultation - Abdomen Abdomen: Present: soft, tender (MILD TENDERNESS OF ABDOMINAL INCISION; otherwise benign), bowel sounds Hernia: Present: none - Genitourinary Present: normal external genitalia - Integumentary Present: no rash, no growths, no abnormal pigmentation - Neurologic Present: normal coordination, normal sensation - Musculoskeletal Present: normal gait, normal posture - Psychiatric Present: oriented to time, oriented to person, oriented to place, speech is normal, memory intact Discharge Plan - Patient/Caregiver Discharge Instructions Activity: increase activity as tolerated Diet: Consistent Carbohydrate Additional Instructions: Vancomycin irrigation twice daily Prescriptions: Doxycycline Hyclate 100 mg PO BID #60 tablet.orl Fluconazole [Diflucan] 100 mg PO DAILY #7 tab - Follow up Plan Disposition: Home, Self-Care Prognosis: Good Rehab Potential: Good I certify that the patient requires SNF services.: No Overall status at discharge: patient is not back to baseline Pending Studies Resuscitation Status Full Code Diet Consistent Carbohydrate Diet Start TueJul 05 1456 Aspirin (Aspirin) 81 mg PO DAILY [facility] Last Admin: 07/11/18 08:32 Dose: 81 mg Admin: 07/10/18 08:55 Dose: 81 mg Admin: 07/09/18 08:18 Dose: 81 mg Admin: 07/08/18 07:58 Dose: 81 mg Admin: 07/07/18 08:40 Dose: 81 mg Admin: 07/06/18 09:21 Dose: 81 mg Diagnostic Test (Pha) (Accu-Chek) 1 each FS ACHS [facility] Last Admin: 07/11/18 11:21 Dose: 1 each Admin: 07/11/18 06:43 Dose: 1 each Admin: 07/10/18 20:44 Dose: 1 each Admin: 07/10/18 16:33 Dose: 1 each Admin: 07/10/18 12:04 Dose: 1 each Admin: 07/10/18 07:52 Dose: 1 each Admin: 07/09/18 21:00 Dose: 1 each Admin: 07/09/18 17:16 Dose: 1 each Admin: 07/09/18 12:42 Dose: 1 each Admin: 07/09/18 08:21 Dose: 1 each Admin: 07/08/18 21:35 Dose: 1 each Admin: 07/08/18 17:46 Dose: 1 each Admin: 07/08/18 11:04 Dose: 1 each Admin: 07/08/18 07:58 Dose: 1 each Admin: 07/07/18 20:35 Dose: 1 each Admin: 07/07/18 17:06 Dose: 1 each Admin: 07/07/18 11:52 Dose: 1 each Admin: 07/07/18 07:30 Dose: 1 each Admin: 07/06/18 21:06 Dose: 1 each Admin: 07/06/18 16:48 Dose: 1 each Admin: 07/06/18 11:17 Dose: 1 each Admin: 07/06/18 08:15 Dose: 1 each Admin: 07/05/18 21:28 Dose: 1 each Admin: 07/05/18 17:13 Dose: 1 each Doxycycline Hyclate (Doxycycline Hyclate) 100 mg PO BID [facility] Last Admin: 07/11/18 08:32 Dose: 100 mg Admin: 07/10/18 20:43 Dose: 100 mg Fluconazole (Diflucan) 150 mg PO DAILY [facility] Last Admin: 07/11/18 08:32 Dose: 150 mg Glipizide (Glucotrol) 10 mg PO BIDAC [facility] Last Admin: 07/11/18 06:46 Dose: 10 mg Admin: 07/10/18 16:35 Dose: 10 mg Admin: 07/10/18 07:57 Dose: 10 mg Admin: 07/09/18 17:18 Dose: 10 mg Admin: 07/09/18 08:18 Dose: 10 mg Admin: 07/08/18 17:47 Dose: Admin: 07/08/18 07:58 Dose: 10 mg Admin: 07/07/18 17:07 Dose: Not Given Admin: 07/07/18 07:29 Dose: 10 mg Admin: 07/06/18 17:03 Dose: 10 mg Admin: 07/06/18 09:21 Dose: 10 mg Admin: 07/05/18 17:13 Dose: 10 mg Vancomycin HCl 80 mg/ Sodium (Chloride) 5 mls @ 0 mls/hr IRR BID [facility] Last Admin: 07/11/18 08:31 Dose: 5 mls/hr Infusion: 07/10/18 20:44 Dose: 0 mls/hr Infusion: 07/10/18 20:44 Dose: 0 mls/hr Admin: 07/10/18 20:44 Dose: 5 mls/hr Infusion: 07/10/18 09:56 Dose: 5 mls/hr Admin: 07/10/18 08:56 Dose: 5 mls/hr Infusion: 07/09/18 21:01 Dose: 0 mls/hr Admin: 07/09/18 21:01 Dose: 5 mls/hr Infusion: 07/09/18 09:19 Dose: 0 mls/hr Admin: 07/09/18 08:19 Dose: 5 mls/hr Infusion: 07/08/18 21:40 Dose: 0 mls/hr Admin: 07/08/18 21:37 Dose: 5 mls/hr Infusion: 07/08/18 10:53 Dose: 5 mls/hr Admin: 07/08/18 09:53 Dose: 5 mls/hr Infusion: 07/07/18 20:25 Dose: 0 mls/hr Admin: 07/07/18 20:22 Dose: 5 mls/hr Infusion: 07/07/18 09:40 Dose: 5 mls/hr Admin: 07/07/18 08:40 Dose: 5 mls/hr Infusion: 07/07/18 00:46 Dose: 0 mls/hr Admin: 07/06/18 21:05 Dose: 5 mls/hr Infusion: 07/06/18 10:21 Dose: 0 mls/hr Admin: 07/06/18 09:21 Dose: 5 mls/hr Infusion: 07/05/18 22:32 Dose: 5 mls/hr Admin: 07/05/18 21:32 Dose: 5 mls/hr Lisinopril (Zestril) 40 mg PO DAILY [facility] Last Admin: 07/11/18 08:32 Dose: 40 mg Admin: 07/10/18 08:55 Dose: 40 mg Admin: 07/09/18 08:18 Dose: 40 mg Admin: 07/08/18 07:58 Dose: 40 mg Admin: 07/07/18 08:40 Dose: 40 mg Admin: 07/06/18 09:29 Dose: Not Given Metformin HCl (Glucophage) 1,000 mg PO BIDCC [facility] Last Admin: 07/11/18 08:32 Dose: 1,000 mg Admin: 07/10/18 17:20 Dose: 1,000 mg Admin: 07/10/18 07:57 Dose: 1,000 mg Admin: 07/09/18 17:17 Dose: 1,000 mg Admin: 07/09/18 08:18 Dose: 1,000 mg Admin: 07/08/18 17:47 Dose: Admin: 07/08/18 07:58 Dose: 1,000 mg Admin: 07/07/18 17:19 Dose: Not Given Admin: 07/07/18 08:40 Dose: 1,000 mg Admin: 07/06/18 17:03 Dose: 1,000 mg Admin: 07/06/18 09:20 Dose: 1,000 mg Admin: 07/05/18 17:14 Dose: 1,000 mg Ondansetron HCl (Zofran) 4 mg IV Q6HP PRN PRN Reason: Nausea And Vomiting Last Admin: 07/07/18 04:53 Dose: 4 mg Admin: 07/06/18 07:41 Dose: 4 mg Admin: 07/06/18 00:36 Dose: 4 mg Sodium Chloride (Saline Flush) 10 ml IV Q8 [facility] Last Admin: 07/11/18 05:46 Dose: Admin: 07/10/18 20:44 Dose: Admin: 07/10/18 13:35 Dose: Admin: 07/10/18 07:13 Dose: Admin: 07/09/18 20:44 Dose: 10 ml Admin: 07/09/18 14:40 Dose: 10 ml Admin: 07/09/18 04:59 Dose: 10 ml Admin: 07/08/18 21:48 Dose: 10 ml Admin: 07/08/18 14:00 Dose: 10 ml Admin: 07/08/18 05:31 Dose: Admin: 07/07/18 22:18 Dose: 10 ml Admin: 07/07/18 15:28 Dose: 10 ml Admin: 07/07/18 04:50 Dose: 10 ml Admin: 07/06/18 21:07 Dose: 10 ml Admin: 07/06/18 14:30 Dose: 10 ml Admin: 07/06/18 05:53 Dose: 10 ml Admin: 07/05/18 21:33 Dose: 10 ml Admin: 07/05/18 14:40 Dose: Not Given Throat Lozenges (Cepacol) 1 lozenge PO PRN PRN PRN Reason: Sore Throat Last Admin: 07/06/18 18:00 Dose: 1 lozenge Shift Summary 07/11/18 04:43 Shift Summary by Lisa Allen&Simeon. VSS on RA. Up with FWW and SBA. Tegaderm dressing to abdominal midline incision is CDI. [address] with serosanguineous drainage. Patient denies pain. Voiding adequate amounts; urine is cloudy. No IV access in place. Plan is for patient to discharge home at 1300 today. Will update at bedside. Initialized on 07/11/18 04:43 - END OF NOTE
== END 2018-07-11 15:55 | disposition home or self-care (01) | DRG 908 ==
LOC: MEDSUR 05:08
PROVIDERS: ADMIT Family Medicine Adult Medicine; ATTEND Family Medicine Adult Medicine
CPT/HCPCS: 11005; 11008; 49568; A4221; A6213; A6250; C1751; C1781; J0131; J1450; J1956; J2001; J2250; J2370; J2405; J2550; J3010; J3370; J7030; J7050; J7060; J7120

== ENCOUNTER 2019-12-23 14:49 | Inpatient (IN) ==
[2019-12-23] MEDS ORDERED: 0.9 % SODIUM CHLORIDE 1,000 ML IV ONE (14:55)
--- NOTE | 2019-12-23 15:07 | Emergency Department Note ---
General Adult HPI - General Chief complaint: Weakness Stated complaint: possible sepsis, nausea, dizziness Time Seen by Provider: 12/23/19 14:57 Source: patient, EMS Mode of arrival: EMS Limitations: no limitations - History of Present Illness HPI Narrative: This patient feels like she might be septic from a UTI. She has been treated twice now in the last couple of weeks for UTI finishing antibiotics a week ago. We do not have the culture results in our system. Patient is not having dysuria but has slight nausea and dizziness. She says she feels similar to when she had sepsis before. However all of her numbers look good and do not look septic. - Related Data Home Medications Medication Instructions Recorded Confirmed aspirin 81 mg tablet,delayed 81 mg PO QDAY tab 02/20/15 08/08/19 release cholecalciferol (vitamin D3) 25 1,000 unit PO QDAY cap 02/20/15 08/08/19 mcg (1,000 unit) capsule cranberry 400 mg capsule 400 mg PO QDAY cap 02/20/15 08/08/19 doxycycline hyclate 100 mg tablet 100 mg PO DAILY tab 06/20/18 08/08/19 Accu-Chek 1 each FS DAILY 07/05/18 08/08/19 Previous Rx's Medication Instructions Recorded furosemide 20 mg tablet 20 mg PO QDAY PRN #90 tab 01/05/17 Doxycycline Hyclate 100 mg PO BID #60 tablet.orl 07/11/18 benzonatate 100 mg capsule 100 mg PO TID PRN #30 cap 09/04/18 atorvastatin 20 mg tablet 20 mg PO QDAY #90 tab 02/26/19 glipizide 10 mg tablet 10 mg PO BID #180 tab 04/24/19 lisinopril 40 mg tablet 40 mg PO DAILY #90 tab 04/24/19 fluconazole 150 mg tablet 150 mg PO QDAY #3 tab 05/28/19 metformin 1,000 mg tablet 1,000 mg PO BID #180 tab 07/26/19 ciprofloxacin HCl 250 mg tablet 250 mg PO BID #14 tab 12/04/19 Allergies Allergy/AdvReac Type Severity Reaction Status Date / Time duloxetine [From Cymbalta] Allergy Severe Hives Verified 08/08/19 10:57 morphine Allergy Severe Unknown Verified 08/08/19 10:57 Penicillins Allergy Severe Anaphylaxis Verified 08/08/19 10:57 mirabegron [From Myrbetriq] AdvReac Severe Hives Verified 08/08/19 10:57 solifenacin [From Vesicare] AdvReac Severe Hives Verified 08/08/19 10:57 sulfamethoxazole AdvReac Severe Vomiting Verified 08/08/19 10:57 [From Septra] trimethoprim [From Septra] AdvReac Severe Vomiting Verified 08/08/19 10:57 methenamine AdvReac Intermediate Difficulty Verified 08/08/19 10:57 Swallowing pregabalin [From Lyrica] AdvReac Mild Vomiting Verified 08/08/19 10:57 MEPERIDINE & RELATED Allergy Severe Hives Uncoded 08/08/19 10:57 SULF (SULFONAMIDES) Allergy Severe Hives Uncoded 08/08/19 10:57 macrobid AdvReac Intermediate Nausea Uncoded 08/08/19 10:57 Review of Systems All systems ED: reviewed and negative except as stated. 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) Recurrent urinary tract infection (Acute) Anemia (Chronic) UTI (urinary tract infection) (Chronic) Small bowel edema (Chronic) Diverticulitis of jejunum (Chronic) Osteoarthritis, knee (Chronic) Upper respiratory infection (Acute) Chronic kidney disease, stage III (moderate) (Chronic) Radial head fracture, closed (Chronic) Ventral hernia (Chronic) Radial fracture (Resolved) Small bowel obstruction (Resolved) Past Surgical History (Last Reviewed 11/26/19 @ 11:30 by Brandon Nunez DO) Status post total knee replacement (Chronic) History of surgery (Acute) Status post right hip replacement (Acute) H/O ventral hernia repair (Chronic) History of section (Chronic) History of cystoscopy (Chronic 10/11/14) History of laparoscopic cholecystectomy (Chronic) History of left hip replacement (Chronic) History of total abdominal hysterectomy and bilateral salpingo-oophorectomy (Chronic) Hx of laparoscopy (Chronic 10/19/15) History of (Inactive) History of cholecystectomy (Inactive) History of cystoscopy (Inactive 10/11/14) History of total hip replacement (Inactive) History of ventral hernia (Inactive) Status post VINOD-BSO (Inactive) Family History (Last Reviewed 11/26/19 @ 11:30 by Brandon Nunez DO) Mother/52 Malignant neoplasm of ovary with BRCA1 gene mutation Father/78 Type 2 diabetes mellitus Malignant neoplasm of pancreas Other Hypertension Medical history: Reports: arthritis, DM, hyperlipidemia, hypertension, renal disease, thyroid disease, other Surgical history ED: Reports: cholecystectomy, hip replacement, orthopedic, other (right ankle) - Social History smoking status: Never smoker Alcohol use: Reports: None Drug use: Reports: none Physical Exam Limitations: no limitations General appearance: alert Head: atraumatic Eye: Present: normal appearance ENT: Present: normal exam Neck: Present: normal inspection Chest: Present: normal inspection Respiratory: Present: normal lung sounds bilaterally Cardiovascular: Present: regular rate, normal rhythm, normal heart sounds Abdominal: Present: soft. Absent: distention, tenderness Neurological: Present: alert Psychiatric: Present: normal affect Skin: Present: warm, dry Course Vital Signs Temperature 98.1 F 12/23/19 14:50 Pulse Rate 76 12/23/19 14:50 Respiratory Rate 20 12/23/19 14:50 Blood Pressure 107/82 12/23/19 14:50 Pulse Oximetry (%) 97 12/23/19 14:50 Temperature 98.1 F 12/23/19 14:50 Pulse Rate 85 12/23/19 20:17 Respiratory Rate 20 12/23/19 14:50 Blood Pressure 139/65 12/23/19 20:17 Pulse Oximetry (%) 97 12/23/19 20:17 Medical Decision Making - MDM Narrative Medical decision making narrative: This patient does have a UTI and her lactic acid initially was 2.5 and then went up to 3.1 despite a liter fluid. I discussed her case with the hospitalist and she will be admitted to the hospital. - Lab Data Lab results reviewed: Yes I reviewed the patient's lab results. Result diagrams: 12/23/19 15:40 12/23/19 15:40 Lab Results 12/23/19 12/23/19 12/23/19 Range/Units 15:17 15:40 15:40 WBC 9.6 (4.50-11.00) K/mcL RBC 4.34 (3.59-5.38) M/mcL Hgb 12.5 (11.2-15.7) g/dL Hct 38.6 (34.1-44.9) % MCV 88.9 (80.0-100.0) fL MCH 28.8 (26.0-34.0) pg MCHC 32.4 (31.0-36.0) g/dL RDW 12.5 (11.5-14.5) % Plt Count 251 (140-440) K/mcL MPV 9.9 (7.4-10.4) fL Total Counted 100 Seg Neutrophils % 88 H (38-78) % Band Neutrophils % Not Reportable Lymphocytes % 6 L (15-49) % Monocytes % (Manual) 6 (1-12) % Platelet Estimate Normal (NORMAL) RBC Morphology Normal (NORMAL) VBG Lactic Acid (0.5-2.0) mmol/L Sodium 136 (133-145) mmol/L Potassium 4.3 (3.3-5.1) mmol/L Chloride 100 (96-108) mmol/L Carbon Dioxide 19 L (22-30) mmol/L Anion Gap 17.0 H (8-16) BUN 24 H (8-23) mg/dl Creatinine 1.2 H (0.6-1.1) mg/dl GFR Calculation 41 Glucose 177 H (70-105) mg/dL Calcium 8.8 (8.6-10.4) mg/dl Total Bilirubin 0.6 (0.0-1.0) mg/dL AST 14 (0-37) U/l ALT 11 (0-40) U/l Alkaline Phosphatase 87 (39-117) U/L Total Protein 6.6 (5.9-8.4) gm/dL Albumin 3.9 (3.2-5.2) gm/dL Globulin 2.7 (2.2-3.7) gm/dL Albumin/Globulin Ratio 1.4 (1.0-2.3) Urine Color Yellow Urine Appearance Cloudy Urine pH 6.0 (5.0-9.0) Ur Specific [place] 1.018 (1.000-1.035) Urine Protein 30 A (NEG) mg/dL Urine Glucose (UA) >=500 A (NEG) mg/dL Urine Ketones Neg (NEG) mg/dL Urine Occult Blood Neg (<0.03) mg/dL Urine Nitrate Neg (NEG) Urine Bilirubin Neg (NEG) mg/dL Urine Urobilinogen Neg (NEG) mg/dL Ur Leukocyte Esterase 500 A (NEG) /uL Urine RBC 6 H (0-1) /hpf Urine WBC > 182 H (0-4) /hpf Ur Squamous Epith Cells 1 (0-4) /hpf Urine Bacteria 0 (0) /hpf Urine Mucus Few (0) /hpf Ur Culture Indicated? Yes 12/23/19 12/23/19 Range/Units 15:40 18:55 WBC (4.50-11.00) K/mcL RBC (3.59-5.38) M/mcL Hgb (11.2-15.7) g/dL Hct (34.1-44.9) % MCV (80.0-100.0) fL MCH (26.0-34.0) pg MCHC (31.0-36.0) g/dL RDW (11.5-14.5) % Plt Count (140-440) K/mcL MPV (7.4-10.4) fL Total Counted Seg Neutrophils % (38-78) % Band Neutrophils % Lymphocytes % (15-49) % Monocytes % (Manual) (1-12) % Platelet Estimate (NORMAL) RBC Morphology (NORMAL) VBG Lactic Acid 2.5 H 3.1 H (0.5-2.0) mmol/L Sodium (133-145) mmol/L Potassium (3.3-5.1) mmol/L Chloride (96-108) mmol/L Carbon Dioxide (22-30) mmol/L Anion Gap (8-16) BUN (8-23) mg/dl Creatinine (0.6-1.1) mg/dl GFR Calculation Glucose (70-105) mg/dL Calcium (8.6-10.4) mg/dl Total Bilirubin (0.0-1.0) mg/dL AST (0-37) U/l ALT (0-40) U/l Alkaline Phosphatase (39-117) U/L Total Protein (5.9-8.4) gm/dL Albumin (3.2-5.2) gm/dL Globulin (2.2-3.7) gm/dL Albumin/Globulin Ratio (1.0-2.3) Urine Color Urine Appearance Urine pH (5.0-9.0) Ur Specific [place] (1.000-1.035) Urine Protein (NEG) mg/dL Urine Glucose (UA) (NEG) mg/dL Urine Ketones (NEG) mg/dL Urine Occult Blood (<0.03) mg/dL Urine Nitrate (NEG) Urine Bilirubin (NEG) mg/dL Urine Urobilinogen (NEG) mg/dL Ur Leukocyte Esterase (NEG) /uL Urine RBC (0-1) /hpf Urine WBC (0-4) /hpf Ur Squamous Epith Cells (0-4) /hpf Urine Bacteria (0) /hpf Urine Mucus (0) /hpf Ur Culture Indicated? - Radiology Data Radiology results reviewed: Yes I reviewed the patient's radiology results. Disposition Pt seen by NURSING HOME AIDE/PA only: No Clinical Impression: Sepsis, Urinary tract infection Disposition: Xfer As Inpt ([facility]) Condition: Good Referrals: Brandon Nunez DO [Primary Care Provider] - Time of Disposition: 20:37
--- NOTE | 2019-12-23 15:23 | XRay Report ---
CLINICAL INFORMATION: poss sepsis COMPARISON: 09/04/2018 FINDINGS: Moderate cardiomegaly is unchanged. Tortuous thoracic aorta again noted. The remainder of the mediastinum and pulmonary vessels are normal. There is minor bibasilar atelectasis - no infiltrates no definite effusions. IMPRESSION: Minor bibasilar atelectasis Interpreted and Authenticated by: Brandon Ag 12/23/19
[2019-12-23 16:27] LABS: Appearance,Urine CLOUDY; Bacteria,Urine 0 /hpf (0); Bilirubin,Urine NEG (NEG); Color,Urine YELLOW; Culture Indicated,Urine YES; Glucose,Urine (UA) >=500 mg/dL (NEG); Ketones,Urine NEG (NEG); Leukocyte Esterase,Urine 500 /uL (NEG); Mucus,Urine FEW /hpf (0); Nitrate,Urine NEG (NEG); Protein,Urine 30 mg/dL (NEG); Specific Gravity,Urine 1.018 (1.000-1.035); Urine Blood NEG mg/dL (<0.03); Urine RBC 6 /hpf (0-1); Urine Squamous Epithelial Cell 1 /hpf (0-4); Urine WBC > 182 /hpf (0-4); Urobilinogen,Urine NEG (NEG)
[2019-12-23 16:42] LABS: Lymphocytes % 6 % (15-49); Monocytes % (Manual) 6 % (1-12); Platelet Estimate NORMAL (NORMAL); RBC Morphology NORMAL (NORMAL); Segmented Neutrophils % 88 % (38-78)
[2019-12-23 16:44] LABS: Hematocrit 38.6 % (34.1-44.9); Hemoglobin 12.5 g/dL (11.2-15.7); Mean Cell Volume 88.9 fL (80.0-100.0); Mean Corpuscular HGB Conc 32.4 g/dL (31.0-36.0); Mean Platelet Volume 9.9 fL (7.4-10.4); RBC 4.34 M/mcL (3.59-5.38); Red Cell Distribution Width 12.5 % (11.5-14.5); WBC 9.6 K/mcL (4.50-11.00)
[2019-12-23 16:45] LABS: ALT/SGPT 11 U/l (0-40); AST/SGOT 14 U/l (0-37); Albumin 3.9 gm/dL (3.2-5.2); Albumin/Globulin Ratio 1.4 (1.0-2.3); Alkaline Phosphatase 87 U/L (39-117); Bilirubin,Total 0.6 mg/dL (0.0-1.0); Blood Urea Nitrogen 24 mg/dl (8-23); Calcium 8.8 mg/dl (8.6-10.4); Carbon Dioxide 19 mmol/L (22-30); Chloride 100 mmol/L (96-108); Globulin 2.7 gm/dL (2.2-3.7); Glomerular Filtration Rate 41; Glucose 177 mg/dL (70-105)
[2019-12-23 16:48] LABS: Platelet Count 251 K/mcL (140-440)
[2019-12-23] MEDS ORDERED: LEVOFLOXACIN 750 MG/150 ML BAG IV ONE (17:49)
[2019-12-23] MEDS ORDERED: CEFEPIME 2 GM VIAL IV ONE ×2 (20:36)
[2019-12-23] MEDS ORDERED: 0.9 % SODIUM CHLORIDE 500 ML IV ONE (20:41)
--- NOTE | 2019-12-23 21:21 | Internal Med History&Physical ---
Medical - H&P: [facility] Patient information: Note initiated : 12/23/19 at 9:18 pm Service Date, if different from initiated Date: [] Patient: Chloe Benitez a 84 y/o F admitted on for possible sepsis, nausea, dizziness. Chief Complaint: [] History of present illness: Ms. Benitez is a 84 year old F Who presents the ED with symptoms of weakness dizziness lightheadedness nausea she vomited. She was worried she is becoming septic like she had become in the past and was quite scared and thus called 911 and was brought in to the ED. She states she is been battling a urinary tract infection for the last past month. Her symptoms typically include dysuria frequency. She was given prescription for Cipro earlier in the month but felt the symptoms were still there so extension of that medication was called in. She denies dysuria at this time still has frequency and her urine has a strong odor to it. Feels she is still infected and this along with her symptoms today made her concern for sepsis. Started midmorning today. She denies fever chills. She had a vomiting episode this morning. In the ED she was evaluated and looked stable however her lactate was initially 2.5 and increased to 3.1 after a liter of IV fluid was given thus concern needing to remain in the hospital. In looking at old urine cultures she is growing E. coli and Citrobacter both with multiple resistance to antibiotics. Started on cefepime. Blood cultures have been obtained. Review of Systems: Pertinent positives as above. Denies headache/fever/chills//chest or abdominal pain/cough/dyspnea/diarrhea. 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/13) Urinary tract infection (Chronic) Obesity (Chronic) Hypothyroidism (acquired) (Chronic 11/01/13) Pure hypertriglyceridemia (Chronic) Hypertension, essential (Chronic 11/01/13) Hearing loss (Chronic 11/01/13) Hyperlipidemia (Chronic 11/08/13) 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) Recurrent urinary tract infection (Acute) Anemia (Chronic) UTI (urinary tract infection) (Chronic) Small bowel edema (Chronic) Diverticulitis of jejunum (Chronic) Osteoarthritis, knee (Chronic) Upper respiratory infection (Acute) Chronic kidney disease, stage III (moderate) (Chronic) Radial head fracture, closed (Chronic) Ventral hernia (Chronic) Radial fracture (Resolved) Small bowel obstruction (Resolved) Past Surgical History (Last Reviewed 11/26/19 @ 11:30 by Brandon Nunez DO) Status post total knee replacement (Chronic) History of surgery (Acute) Status post right hip replacement (Acute) H/O ventral hernia repair (Chronic) History of section (Chronic) History of cystoscopy (Chronic 10/11/14) History of laparoscopic cholecystectomy (Chronic) History of left hip replacement (Chronic) History of total abdominal hysterectomy and bilateral salpingo-oophorectomy (Chronic) Hx of laparoscopy (Chronic 10/19/15) History of (Inactive) History of cholecystectomy (Inactive) History of cystoscopy (Inactive 10/11/14) History of total hip replacement (Inactive) History of ventral hernia (Inactive) Status post VINOD-BSO (Inactive) Family History (Last Reviewed 11/26/19 @ 11:30 by Brandon Nunez DO) Mother/52 Malignant neoplasm of ovary with BRCA1 gene mutation Father/78 Type 2 diabetes mellitus Malignant neoplasm of pancreas Other Hypertension Social History (Last Updated 11/26/19 @ 11:31 by Brandon Nunez DO) Patient denies tobacco or alcohol uses a cane and lives by herself Medical - H&P: Meds Home Medications Medication Instructions Recorded Confirmed Type aspirin 81 mg tablet,delayed 81 mg PO QDAY tab 02/20/15 12/23/19 History release furosemide 20 mg tablet 20 mg PO QDAY PRN #90 tab 01/05/17 12/23/19 Rx Accu-Chek 1 each FS DAILY 07/05/18 12/23/19 History atorvastatin 20 mg tablet 20 mg PO QDAY #90 tab 02/26/19 12/23/19 Rx glipizide 10 mg tablet 10 mg PO BID #180 tab 04/24/19 12/23/19 Rx lisinopril 40 mg tablet 40 mg PO DAILY #90 tab 04/24/19 12/23/19 Rx metformin 1,000 mg tablet 1,000 mg PO BID #180 tab 07/26/19 12/23/19 Rx Allergies Allergy/AdvReac Type Severity Reaction Status Date / Time duloxetine [From Cymbalta] Allergy Severe Hives Verified 08/08/19 10:57 morphine Allergy Severe Unknown Verified 08/08/19 10:57 Penicillins Allergy Severe Anaphylaxis Verified 08/08/19 10:57 mirabegron [From Myrbetriq] AdvReac Severe Hives Verified 08/08/19 10:57 solifenacin [From Vesicare] AdvReac Severe Hives Verified 08/08/19 10:57 sulfamethoxazole AdvReac Severe Vomiting Verified 08/08/19 10:57 [From Septra] trimethoprim [From Septra] AdvReac Severe Vomiting Verified 08/08/19 10:57 methenamine AdvReac Intermediate Difficulty Verified 08/08/19 10:57 Swallowing pregabalin [From Lyrica] AdvReac Mild Vomiting Verified 08/08/19 10:57 MEPERIDINE & RELATED Allergy Severe Hives Uncoded 08/08/19 10:57 SULF (SULFONAMIDES) Allergy Severe Hives Uncoded 08/08/19 10:57 macrobid AdvReac Intermediate Nausea Uncoded 08/08/19 10:57 Medical - H&P: Exam - Constitutional Vitals: Temp Pulse Resp BP Pulse Ox 98.1 F 86 20 123/78 96 12/23/19 14:50 12/23/19 20:47 12/23/19 14:50 12/23/19 20:47 12/23/19 20:47 Exam: General: Alert, Awake, No acute Distress Eyes/N/T: EOMI, PERRL, dry MM Head/Neck: neck supple, normocephalic atraumatic CV: RRR, No murmurs, normal s1/s2 Pulm: Clear b/l, no wheezing/rhonchi/rales Abd: soft, nontender, +BS x4 Ext: no clubbing/cyanosis, trace bilateral lower extremity edema Neuro: Alert, no focal deficits, moves all extremities, CN 2-12 grossly intact, symmetrical strength b/l upper/lower, sensations intact b/l upper/lower Skin: warm/dry Medical - H&P: Reslt - Labs CBC & Chem 7: 12/23/19 15:40 05/03/20 15:40 Labs: Short CBC 12/23/19 Range/Units 15:40 WBC 9.6 (4.50-11.00) K/mcL Hgb 12.5 (11.2-15.7) g/dL Hct 38.6 (34.1-44.9) % Plt Count 251 (140-440) K/mcL BMP 12/23/19 15:40 Sodium 136 Potassium 4.3 Chloride 100 Carbon Dioxide 19 L BUN 24 H Creatinine 1.2 H Glucose 177 H Calcium 8.8 Liver Function 12/23/19 Range/Units 15:40 Total Bilirubin 0.6 (0.0-1.0) mg/dL AST 14 (0-37) U/l ALT 11 (0-40) U/l Alkaline Phosphatase 87 (39-117) U/L Albumin 3.9 (3.2-5.2) gm/dL Urine 12/23/19 Range/Units 15:17 Urine Color Yellow Urine Appearance Cloudy Urine pH 6.0 (5.0-9.0) Ur Specific [place] 1.018 (1.000-1.035) Urine Protein 30 A (NEG) mg/dL Urine Glucose (UA) >=500 A (NEG) mg/dL Medical - H&P: A/P - Narrative A/P Narrative: A: *UTI: History of abx resistant E. coli and Citrobacter -Failed outpatient antibiotics *Lactic acidosis: Repeat level had increased in the ED. *DM: *CKD III: *HTN/HLD: * P: -IVF -Cefepime, Pending BC/UC -Follow-up lactate -SSI, continue glipizide, hold metformin and Jardiance - -Continue home blood pressure medication but hold Lasix for now -Continue home aspirin/ statin -ppx: Lovenox DNR
[2019-12-23] MEDS ORDERED: DEXTROSE 31 GM ORAL.SUSP PO PRN (21:52)
[2019-12-23] MEDS ORDERED: SENNOSIDES 1 TABLET PO PRN (21:52)
[2019-12-23] MEDS ORDERED: 0.9 % SODIUM CHLORIDE 1,000 ML IV SCH (21:52)
[2019-12-23] MEDS ORDERED: POTASSIUM CHLORIDE 20 MEQ TABLET PO PRN ×2 (21:52)
[2019-12-23] MEDS ORDERED: MAGNESIUM SULFATE 2 GM/50 ML BAG IV PRN (21:52)
[2019-12-23] MEDS ORDERED: ACETAMINOPHEN 325 MG TABLET PO PRN (21:52)
[2019-12-23] MEDS ORDERED: ONDANSETRON 4 MG/2 ML VIAL IV PRN (21:52)
[2019-12-23] MEDS ORDERED: DEXTROSE 50% 50 ML VIAL IV PRN (21:52)
[2019-12-23] MEDS ORDERED: POTASSIUM CHLORIDE 40 MEQ in DEXTROSE 5% IN WATER 500 ML IV PRN (21:52)
[2019-12-23] MEDS ORDERED: POLYETHYLENE GLYCOL 3350 17 GM PACKET PO PRN (21:52)
[2019-12-23] MEDS ORDERED: CEFEPIME 1 GM VIAL ONE (21:58)
[2019-12-23] MEDS: 0.9 % SODIUM CHLORIDE 10 ML SYRINGE IV SCH (22:29)
[2019-12-24] MEDS ORDERED: hydrALAZINE 20 MG/ML VIAL IV PRN (03:31)
[2019-12-24] MEDS ORDERED: LABETALOL 5 MG/ML ML IV PRN ×2 (03:32→10:25)
[2019-12-24] MEDS ORDERED: LISINOPRIL 20 MG TABLET PO ONE (03:33)
[2019-12-24] MEDS ORDERED: LISINOPRIL 10 MG TABLET ONE (03:38)
[2019-12-24] MEDS ORDERED: hydrALAZINE 20 MG/ML VIAL ONE (03:39)
[2019-12-24] MEDS: 0.9 % SODIUM CHLORIDE 10 ML SYRINGE IV SCH ×3 (04:55→20:49)
[2019-12-24 06:08] LABS: Basophils # (Auto) 0.02 K/mcL (0.00-0.30); Basophils % (Auto) 0.2 % (0.0-2.0); Eosinophils % (Auto) 2.3 % (0.0-7.0); Granulocytes % (Auto) 75.8 % (38.0-78.0); Hematocrit 38.4 % (34.1-44.9); Hemoglobin 12.1 g/dL (11.2-15.7); Lymphocytes # (Auto) 1.24 K/mcL (1.50-4.80); Lymphocytes % (Auto) 14.2 % (15.5-49.0); Mean Corpuscular HGB Conc 31.5 g/dL (31.0-36.0); Mean Platelet Volume 9.2 fL (7.4-10.4); Monocytes % (Auto) 6.9 % (1.0-12.0); Platelet Count 261 K/mcL (140-440); RBC 4.13 M/mcL (3.59-5.38); Red Cell Distribution Width 12.4 % (11.5-14.5); WBC 8.8 K/mcL (4.50-11.00)
[2019-12-24 06:29] LABS: ALT/SGPT 9 U/l (0-40); AST/SGOT 13 U/l (0-37); Albumin 3.5 gm/dL (3.2-5.2); Albumin/Globulin Ratio 1.3 (1.0-2.3); Alkaline Phosphatase 78 U/L (39-117); Bilirubin,Direct < 0.2 mg/dL (0.0-0.3); Bilirubin,Total 0.6 mg/dL (0.0-1.0); Blood Urea Nitrogen 24 mg/dl (8-23); Carbon Dioxide 17 mmol/L (22-30); Chloride 105 mmol/L (96-108); Globulin 2.6 gm/dL (2.2-3.7); Glomerular Filtration Rate 41; Glucose 196 mg/dL (70-105); Lactate Dehydrogenase 186 U/L (94-250); Phosphorous 2.8 mg/dL (2.7-4.5); Triglycerides 178 mg/dl (<150); Uric Acid 5.3 mg/dL (2.5-8.0)
[2019-12-24] MEDS ORDERED: glipiZIDE 5 MG TABLET PO SCH (07:30)
[2019-12-24] MEDS ORDERED: INSULIN LISPRO 1 UNIT/0.01 ML UNIT SQ SCH (07:30)
[2019-12-24] MEDS ORDERED: FUROSEMIDE 20 MG TABLET PO PRN ×2 (07:51→10:25)
--- NOTE | 2019-12-24 07:52 | Internal Med Progress Note ---
Medical - PN: Subj Patient information: Note initiated : 12/24/19 at 7:48 am Service Date, if different from initiated Date: [] Patient: Chloe Benitez a 84 y/o F admitted on 12/23/19 for possible sepsis, nausea, dizziness. Chief Complaint: [] Interval history: Ms. Benitze is a 84 year old F Who presents the ED with symptoms of weakness dizziness lightheadedness nausea she vomited. She was worried she is becoming septic like she had become in the past and was quite scared and thus called 911 and was brought in to the ED. She states she is been battling a urinary tract infection for the last past month. Her symptoms typically include dysuria frequency. She was given prescription for Cipro earlier in the month but felt the symptoms were still there so extension of that medication was called in. She denies dysuria at this time still has frequency and her urine has a strong odor to it. Feels she is still infected and this along with her symptoms today made her concern for sepsis. Started midmorning today. She denies fever chills. She had a vomiting episode this morning. In the ED she was evaluated and looked stable however her lactate was initially 2.5 and increased to 3.1 after a liter of IV fluid was given thus concern needing to remain in the hospital. In looking at old urine cultures she is growing E. coli and Citrobacter both with multiple resistance to antibiotics. Started on cefepime. Blood cultures have been obtained. 5/4 A little better but is at the same time she is stressed because of claustrophobia which she gets easily. Started happening last night. Blood pressure elevated as well as well as tachycardia. Sinus tach. Lactic acidosis resolved. Review of Systems: denies headache/fever/chills/nausea/vomiting/chest or abdominal pain/cough/dyspnea/diarrhea. Otherwise see above. - Constitutional Vitals: Vital Signs Temp Pulse Resp BP Pulse Ox 98.4 F 87 16 170/74 95 12/24/19 03:02 12/24/19 03:02 12/24/19 03:02 12/24/19 04:33 12/24/19 03:02 Period Temp Pulse Resp BP Sys/Abreu Pulse Ox Last 24 Hr 98.1 F-99.8 F 70-106 16-20 107-190/60-126 94-98 Intake and Output 12/23/19 12/24/19 12/24/19 21:59 05:59 13:59 Intake Total 1363 267 800 Output Total 1101 200 Balance 1363 -834 600 Weight 71.214 kg Intake & Output: Intake & Output 12/23/19 12/24/19 12/24/19 21:59 05:59 13:59 Intake Total 1363 267 800 Output Total 1101 200 Balance 1363 -834 600 Weight 71.214 kg Intake: IV 1363 267 Sodium Chloride 0.9% 1,000 ml @ 1000 Wide Open IV BOLUS ONE Rx#: [id number] Sodium Chloride 0.9% 500 ml @ 233 267 Wide Open IV BOLUS ONE Rx#: [id number] Oral 800 Output: Void Amount 1100 200 # of times incontinent of urine 1 Other: Urine Appearance Cloudy Cloudy Urine Color Bright Yellow Bright Yellow Urine Odor Strong Exam: General: Alert, Awake, a little anxious Eyes/N/T: EOMI, Head/Neck: neck supple, CV: tachy but regular, No murmurs, Pulm: Clear b/l, no wheezing/rhonchi/rales Abd: soft, nontender, +BS x4 Ext: no clubbing/cyanosis, trace bilateral lower extremity edema Neuro: Alert, no focal deficits, moves all extremities, Skin: warm/dry Medical - PN: Obj Da - Labs CBC & Chem 7: 12/24/19 05:20 12/24/19 05:20 Labs: Abnormal Lab Results 12/24/19 12/24/19 12/23/19 05:20 05:20 18:55 Lymph % (Auto) 14.2 L Lymph # (Auto) 1.24 L Seg Neutrophils % Lymphocytes % VBG Lactic Acid 3.1 H Carbon Dioxide 17 L Anion Gap BUN 24 H Creatinine 1.2 H Glucose 196 H Triglycerides 178 H Urine Protein Urine Glucose (UA) Ur Leukocyte Esterase Urine RBC Urine WBC 12/23/19 12/23/19 12/23/19 15:40 15:40 15:40 Lymph % (Auto) Lymph # (Auto) Seg Neutrophils % 88 H Lymphocytes % 6 L VBG Lactic Acid 2.5 H Carbon Dioxide 19 L Anion Gap 17.0 H BUN 24 H Creatinine 1.2 H Glucose 177 H Triglycerides Urine Protein Urine Glucose (UA) Ur Leukocyte Esterase Urine RBC Urine WBC 12/23/19 15:17 Lymph % (Auto) Lymph # (Auto) Seg Neutrophils % Lymphocytes % VBG Lactic Acid Carbon Dioxide Anion Gap BUN Creatinine Glucose Triglycerides Urine Protein 30 A Urine Glucose (UA) >=500 A Ur Leukocyte Esterase 500 A Urine RBC 6 H Urine WBC > 182 H Meds: Medications Acetaminophen (Tylenol) 650 mg PO Q6HP PRN PRN Reason: PAIN/FEVER > 101 Aspirin (Aspirin) 81 mg PO QDAY [facility] Atorvastatin Calcium (Lipitor) 20 mg PO QDAY [facility] Dextrose (Dextrose 50%) 0 ml IV UD PRN PRN Reason: Hypoglycemia Diagnostic Test (Pha) (Accu-Chek) 1 each FS [facility] Enoxaparin Sodium (Lovenox) 30 mg SQ DAILY [facility] Glipizide (Glucotrol) 10 mg PO BIDAC [facility] Glucose (Insta-Glucose) 15 gm PO PRN PRN PRN Reason: Hypoglycemia Hydralazine HCl (Apresoline) 0 mg IV Q2HP PRN PRN Reason: Blood Pressure - High Potassium Chloride 40 meq/ (Dextrose) 520 mls @ 130 mls/hr IV UD PRN PRN Reason: Potassium < 3 Magnesium Sulfate (Magnesium Sulfate) 2 gm in 50 mls @ 50 mls/hr IV UD PRN PRN Reason: Magnesium </= 1.6 Sodium Chloride (Sodium Chloride 0.9%) 1,000 mls @ 75 mls/hr IV .[id number] [facility] Stop: 12/24/19 11:11 Last Admin: 12/23/19 22:29 Dose: 75 mls/hr Documented by: Insulin Human Lispro (Humalog) 0 unit SQ [facility]; Protocol Labetalol HCl (Trandate) 0 mg IV Q2HP PRN PRN Reason: Blood Pressure - High Lisinopril (Zestril) 40 mg PO DAILY [facility] Ondansetron HCl (Zofran) 4 mg IV Q4HP PRN PRN Reason: Nausea And Vomiting Polyethylene Glycol (Miralax) 17 gm PO DAILYP PRN PRN Reason: Constipation Potassium Chloride (Kdur) 40 meq PO UD PRN PRN Reason: Potssium is 3-3.5 Potassium Chloride (Kdur) 40 meq PO UD PRN PRN Reason: Potassium < 3 Senna (Senokot) 2 tab PO DAILYP PRN PRN Reason: Constipation Sodium Chloride (Saline Flush) 10 ml IV Q8 [facility] Last Admin: 12/24/19 04:55 Dose: Not Given Documented by: Medical - PN: A/P - Time Spent With Patient Total time spent is greater than 50% in coordination of care (as documented) at patient's floor/unit and/or counseling patient: - Narrative A/P Narrative: A: *UTI: History of abx resistant E. coli and Citrobacter -Failed outpatient antibiotics *Lactic acidosis: Repeat level had increased in the ED. -resolved *DM: *CKD III: *HTN/HLD: home meds lisinopril/lasix *Anxiety/claustrophobia: P: -IVF's d/c -Cefepime, Pending BC/UC -SSI, continue glipizide -vistaril prn -Continue home blood pressure medication -Continue home aspirin/ statin -ppx: Lovenox DNR Medical - PN: Qual - VTE Deep Vein Thrombosis/Pulmonary Embolism Present on Admission: No
[2019-12-24] MEDS ORDERED: hydrOXYzine 25 MG TABLET PO PRN ×2 (08:15→09:15)
[2019-12-24] MEDS ORDERED: LISINOPRIL 20 MG TABLET PO SCH (09:00)
[2019-12-24] MEDS ORDERED: ATORVASTATIN 20 MG TABLET PO SCH (09:00)
[2019-12-24] MEDS ORDERED: ENOXAPARIN 30 MG/0.3 ML SYRINGE SQ SCH (09:00)
[2019-12-24] MEDS ORDERED: ASPIRIN 81 MG TAB.CHEW PO SCH (09:00)
[2019-12-24] MEDS: CEFEPIME 1 GM VIAL IV SCH ×2 (09:54→20:49)
[2019-12-24] MEDS ORDERED: POTASSIUM CHLORIDE 40 MEQ in DEXTROSE 5% IN WATER 500 ML IV PRN (10:25)
[2019-12-24] MEDS ORDERED: POLYETHYLENE GLYCOL 3350 17 GM PACKET PO PRN (10:25)
[2019-12-24] MEDS ORDERED: DEXTROSE 50% 50 ML VIAL IV PRN (10:25)
[2019-12-24] MEDS ORDERED: ACETAMINOPHEN 325 MG TABLET PO PRN (10:25)
[2019-12-24] MEDS ORDERED: MAGNESIUM SULFATE 2 GM/50 ML BAG IV PRN (10:25)
[2019-12-24] MEDS ORDERED: SENNOSIDES 1 TABLET PO PRN (10:25)
[2019-12-24] MEDS ORDERED: DEXTROSE 31 GM ORAL.SUSP PO PRN (10:25)
[2019-12-24] MEDS ORDERED: POTASSIUM CHLORIDE 20 MEQ TABLET PO PRN ×2 (10:25)
[2019-12-24] MEDS ORDERED: ONDANSETRON 4 MG/2 ML VIAL IV PRN (10:25)
[2019-12-24] MEDS: INSULIN LISPRO 1 UNIT/0.01 ML UNIT SQ SCH ×3 (12:27→20:48)
[2019-12-24] MEDS: glipiZIDE 5 MG TABLET PO SCH (16:46)
[2019-12-25] MEDS: 0.9 % SODIUM CHLORIDE 10 ML SYRINGE IV SCH (06:00)
[2019-12-25 06:36] LABS: Blood Urea Nitrogen 28 mg/dl (8-23); Carbon Dioxide 20 mmol/L (22-30); Chloride 104 mmol/L (96-108); Glomerular Filtration Rate 45; Glucose 177 mg/dL (70-105)
[2019-12-25] MEDS: INSULIN LISPRO 1 UNIT/0.01 ML UNIT SQ SCH ×2 (07:41→11:52)
[2019-12-25] MEDS: glipiZIDE 5 MG TABLET PO SCH (07:42)
--- NOTE | 2019-12-25 08:19 | Internal Med Progress Note ---
Medical - PN: Subj Patient information: Note initiated : 12/25/19 at 8:17 am Service Date, if different from initiated Date: [] Patient: Chloe Benitez a 84 y/o F admitted on 12/23/19 for possible sepsis, nausea, dizziness. Chief Complaint: [] Interval history: Ms. Benitez is a 84 year old F Who presents the ED with symptoms of weakness dizziness lightheadedness nausea she vomited. She was worried she is becoming septic like she had become in the past and was quite scared and thus called 911 and was brought in to the ED. She states she is been battling a urinary tract infection for the last past month. Her symptoms typically include dysuria frequency. She was given prescription for Cipro earlier in the month but felt the symptoms were still there so extension of that medication was called in. She denies dysuria at this time still has frequency and her urine has a strong odor to it. Feels she is still infected and this along with her symptoms today made her concern for sepsis. Started midmorning today. She denies fever chills. She had a vomiting episode this morning. In the ED she was evaluated and looked stable however her lactate was initially 2.5 and increased to 3.1 after a liter of IV fluid was given thus concern needing to remain in the hospital. In looking at old urine cultures she is growing E. coli and Citrobacter both with multiple resistance to antibiotics. Started on cefepime. Blood cultures have been obtained. 5/4 A little better but is at the same time she is stressed because of claustrophobia which she gets easily. Started happening last night. Blood pressure elevated as well as well as tachycardia. Sinus tach. Lactic acidosis resolved. 5/5 Feeling well. No new complaints overnight events. Good vital signs. Urine culture growing E. coli but sensitivities not back yet. Review of Systems: denies headache/fever/chills/nausea/vomiting/chest or abdominal pain/cough/dyspnea/diarrhea. Otherwise see above. - Constitutional Vitals: Vital Signs Temp Pulse Resp BP Pulse Ox 98.5 F 70 18 141/71 95 12/25/19 08:00 12/25/19 08:00 12/25/19 08:00 12/25/19 08:00 12/25/19 08:00 Period Temp Pulse Resp BP Sys/Abreu Pulse Ox Last 24 Hr 97.7 F-98.5 F 70-79 18-20 134-172/64-75 93-97 Intake and Output 12/24/19 12/25/19 12/25/19 21:59 05:59 13:59 Intake Total 480 0 Output Total 650 226 Balance -170 -226 Weight 75.296 kg Intake & Output: Intake & Output 12/24/19 12/25/19 12/25/19 21:59 05:59 13:59 Intake Total 480 0 Output Total 650 226 Balance -170 -226 Weight 75.296 kg Intake: Oral 480 0 Output: Void Amount 650 225 # of times incontinent of urine 1 Other: Meal Dinner Percent of Meal Consumed 100% Feeding Ability Independent Urine Appearance Cloudy Cloudy Urine Color Bright Yellow Bright Yellow Urine Odor Foul Exam: General: Alert, Awake, no acute distress Eyes/N/T: EOMI, Head/Neck: neck supple, CV: RRR, No murmurs, Pulm: Clear b/l, no wheezing/rhonchi/rales Abd: soft, nontender, +BS x4 Ext: no clubbing/cyanosis, trace bilateral lower extremity edema Neuro: Alert, no focal deficits, moves all extremities, Skin: warm/dry Medical - PN: Obj Da - Labs CBC & Chem 7: 12/24/19 05:20 12/25/19 05:20 Labs: Abnormal Lab Results 12/25/19 12/24/19 12/24/19 05:20 05:20 05:20 Lymph % (Auto) 14.2 L Lymph # (Auto) 1.24 L Seg Neutrophils % Lymphocytes % VBG Lactic Acid Carbon Dioxide 20 L 17 L Anion Gap BUN 28 H 24 H Creatinine 1.2 H Glucose 177 H 196 H Triglycerides 178 H Urine Protein Urine Glucose (UA) Ur Leukocyte Esterase Urine RBC Urine WBC 12/23/19 12/23/19 12/23/19 18:55 15:40 15:40 Lymph % (Auto) Lymph # (Auto) Seg Neutrophils % Lymphocytes % VBG Lactic Acid 3.1 H 2.5 H Carbon Dioxide 19 L Anion Gap 17.0 H BUN 24 H Creatinine 1.2 H Glucose 177 H Triglycerides Urine Protein Urine Glucose (UA) Ur Leukocyte Esterase Urine RBC Urine WBC 12/23/19 12/23/19 15:40 15:17 Lymph % (Auto) Lymph # (Auto) Seg Neutrophils % 88 H Lymphocytes % 6 L VBG Lactic Acid Carbon Dioxide Anion Gap BUN Creatinine Glucose Triglycerides Urine Protein 30 A Urine Glucose (UA) >=500 A Ur Leukocyte Esterase 500 A Urine RBC 6 H Urine WBC > 182 H Meds: Medications Acetaminophen (Tylenol) 650 mg PO Q6HP PRN PRN Reason: PAIN/FEVER > 101 Aspirin (Aspirin) 81 mg PO QDAY [facility] Atorvastatin Calcium (Lipitor) 20 mg PO HS [facility] Cefepime HCl (Maxipime) 1 gm IV Q12H [facility] Last Admin: 12/24/19 20:49 Dose: 1 gm Documented by: Dextrose (Dextrose 50%) 0 ml IV UD PRN PRN Reason: Hypoglycemia Diagnostic Test (Pha) (Accu-Chek) 1 each FS [facility] Last Admin: 12/25/19 07:41 Dose: 1 each Documented by: Enoxaparin Sodium (Lovenox) 30 mg SQ DAILY [facility] Furosemide (Lasix) 20 mg PO DAILYP PRN PRN Reason: Edema Glipizide (Glucotrol) 10 mg PO BIDAC [facility] Last Admin: 12/25/19 07:42 Dose: 10 mg Documented by: Glucose (Insta-Glucose) 15 gm PO PRN PRN PRN Reason: Hypoglycemia Potassium Chloride 40 meq/ (Dextrose) 520 mls @ 130 mls/hr IV UD PRN PRN Reason: Potassium < 3 Magnesium Sulfate (Magnesium Sulfate) 2 gm in 50 mls @ 50 mls/hr IV UD PRN PRN Reason: Magnesium </= 1.6 Insulin Human Lispro (Humalog) 0 unit SQ [facility]; Protocol Last Admin: 12/25/19 07:41 Dose: 4 unit Documented by: Labetalol HCl (Trandate) 0 mg IV Q2HP PRN PRN Reason: Blood Pressure - High Last Admin: 12/24/19 20:48 Dose: 10 mg Documented by: Lisinopril (Zestril) 40 mg PO DAILY [facility] Ondansetron HCl (Zofran) 4 mg IV Q4HP PRN PRN Reason: Nausea And Vomiting Polyethylene Glycol (Miralax) 17 gm PO DAILYP PRN PRN Reason: Constipation Potassium Chloride (Kdur) 40 meq PO UD PRN PRN Reason: Potssium is 3-3.5 Potassium Chloride (Kdur) 40 meq PO UD PRN PRN Reason: Potassium < 3 Senna (Senokot) 2 tab PO DAILYP PRN PRN Reason: Constipation Sodium Chloride (Saline Flush) 10 ml IV Q8 [facility] Last Admin: 12/25/19 06:00 Dose: Not Given Documented by: Medical - PN: A/P - Time Spent With Patient Total time spent is greater than 50% in coordination of care (as documented) at patient's floor/unit and/or counseling patient: - Narrative A/P Narrative: A: *UTI(e.coli): History of abx resistant E. coli and Citrobacter -Failed outpatient antibiotics *Lactic acidosis: Repeat level had increased in the ED. -resolved *DM: *CKD III: *HTN/HLD: home meds lisinopril/lasix *Anxiety/claustrophobia: P: -Cefepime, UC -SSI, continue glipizide -Continue home blood pressure medication -Continue home aspirin/ statin -ppx: Lovenox DNR Medical - PN: Qual - VTE Deep Vein Thrombosis/Pulmonary Embolism Present on Admission: No
[2019-12-25] MEDS ORDERED: ASPIRIN 81 MG TAB.CHEW PO SCH (09:00)
[2019-12-25] MEDS ORDERED: LISINOPRIL 20 MG TABLET PO SCH (09:00)
[2019-12-25] MEDS ORDERED: ENOXAPARIN 30 MG/0.3 ML SYRINGE SQ SCH (09:00)
[2019-12-25] MEDS: CEFEPIME 1 GM VIAL IV SCH (09:06)
--- NOTE | 2019-12-25 10:52 | Discharge Summary ---
Medical - DS: Prov Patient information: Note initiated : 12/25/19 at 10:50 am Service Date, if different from initiated Date: [] Patient: Chloe Benitez 84 y/o F admitted on 12/23/19 for possible sepsis, nausea, dizziness. Chief Complaint: [] Date of admission: 12/23/19 21:41 Discharge date: 12/25/19 Primary care physician: Brandon Nunez Consults: 12/23/19 Consult to Physician [CONS] Stat Comment: Consulting Provider: Elieser Valdivia Reason For Exam: Physician to Consult Medical - DS: Meds - Discharge Medications Prescriptions: Cefdinir 300 mg PO BID #8 cap Transmission Status: Pending to [facility] Active and Home Medications: Home Medications aspirin 81 mg tablet,delayed release 81 mg PO QDAY tab 02/20/15 [History Confirmed 12/23/19 Last Taken 12/23/19 06:30] furosemide 20 mg tablet 20 mg PO QDAY PRN #90 tab 01/05/17 [Rx Confirmed 12/23/19 Last Taken 06/06/18 07:00] Accu-Chek 1 each FS DAILY 07/05/18 [History Confirmed 12/23/19 Last Taken 12/23/19 06:30] atorvastatin 20 mg tablet 20 mg PO QDAY #90 tab 02/26/19 [Rx Confirmed 12/23/19 Last Taken 12/22/19 22:00] glipizide 10 mg tablet 10 mg PO BID #180 tab 04/24/19 [Rx Confirmed 12/23/19 Last Taken 12/23/19 06:30] lisinopril 40 mg tablet 40 mg PO DAILY #90 tab 04/24/19 [Rx Confirmed 12/23/19 Last Taken 12/23/19 06:30] metformin 1,000 mg tablet 1,000 mg PO BID #180 tab 07/26/19 [Rx Confirmed 12/23/19 Last Taken 12/23/19 06:30] Home Medications aspirin 81 mg tablet,delayed release 81 mg PO QDAY tab 02/20/15 [History Co nfirmed 12/23/19 Last Taken 12/23/19 06:30] furosemide 20 mg tablet 20 mg PO QDAY PRN #90 tab 01/05/17 [Rx Confirmed 12/23/19 Last Taken 06/06/18 07:00] Accu-Chek 1 each FS DAILY 07/05/18 [History Confirmed 12/23/19 Last Taken 12/23/19 06:30] atorvastatin 20 mg tablet 20 mg PO QDAY #90 tab 02/26/19 [Rx Confirmed 12/23/19 Last Taken 12/22/19 22:00] glipizide 10 mg tablet 10 mg PO BID #180 tab 04/24/19 [Rx Confirmed 12/23/19 Last Taken 12/23/19 06:30] lisinopril 40 mg tablet 40 mg PO DAILY #90 tab 04/24/19 [Rx Confirmed 12/23/19 Last Taken 12/23/19 06:30] metformin 1,000 mg tablet 1,000 mg PO BID #180 tab 07/26/19 [Rx Confirmed 12/23/19 Last Taken 12/23/19 06:30] Cefdinir 300 mg PO BID #8 cap 12/25/19 [Rx Last Taken Unknown] Medical - DS: Hosp Hospital Course: Ms. Benitez is a 84 year old F Who presents the ED with symptoms of weakness dizziness lightheadedness nausea she vomited. She was worried she is becoming septic like she had become in the past and was quite scared and thus called 911 and was brought in to the ED. She states she is been battling a urinary tract infection for the last past month. Her symptoms typically include dysuria frequency. She was given prescription for Cipro earlier in the month but felt the symptoms were still there so extension of that medication was called in. She denies dysuria at this time still has frequency and her urine has a strong odor to it. Feels she is still infected and this along with her symptoms today made her concern for sepsis. Started midmorning today. She denies fever chills. She had a vomiting episode this morning. In the ED she was evaluated and looked stable however her lactate was initially 2.5 and increased to 3.1 after a liter of IV fluid was given thus concern need ing to remain in the hospital. In looking at old urine cultures she is growing E. coli and Citrobacter both with multiple resistance to antibiotics. Started on cefepime. Blood cultures have been obtained. 12/23 A little better but is at the same time she is stressed because of claustrophobia which she gets easily. Started happening last night. Blood pressure elevated as well as well as tachycardia. Sinus tach. Lactic acidosis resolved. 12/24 Feeling well. No new complaints overnight events. Good vital signs. Urine culture growing E. coli but sensitivities not back yet. A: *UTI (E.coli resistant organism): -Failed outpatient antibiotics *Lactic acidosis: Repeat level had increased in the ED. -resolved *DM: *CKD III: *HTN/HLD: home meds lisinopril/lasix *Anxiety/claustrophobia: Discharge diagnosis: Resistant E. coli urinary tract infection lactic acidosis Secondary discharge diagnosis: Diabetes chronic kidney disease hypertension - Time Spent with Patient Total time spent providing and/or coordinating discharge services: Greater than 30 minutes Medical - DS: Exam - Constitutional Vitals: Vital Signs Temp Pulse Resp BP Pulse Ox 12/25/19 08:00 98.5 F 70 18 141/71 95 12/25/19 03:39 98.4 F 72 18 134/65 96 12/25/19 00:17 75 143/75 93 12/24/19 23:25 98.4 F 73 20 161/71 96 12/24/19 20:14 155/72 12/24/19 19:11 97.9 F 78 20 172/72 97 12/24/19 15:35 98.1 F 78 20 145/64 95 12/24/19 12:29 97.7 F 79 18 149/70 97 Intake and Output 12/24/19 12/25/19 12/25/19 21:59 05:59 13:59 Intake Total 480 0 480 Output Total 650 226 Balance -170 -226 480 Intake: Oral 480 0 480 Output: Void Amount 650 225 # of times incontinent of urine 1 Other: Meal Dinner Breakfast Percent of Meal Consumed 100% 100% Feeding Ability Independent Independent Urine Appearance Cloudy Cloudy Urine Color Bright Yellow Bright Yellow Urine Odor Foul Weight 75.296 kg Medical - DS: Data Labs on day of discharge: Labs from last 24 hours 12/25/19 05:20 Sodium 138 Potassium 3.8 Chloride 104 Carbon Dioxide 20 L Anion Gap 14.0 BUN 28 H Creatinine 1.1 GFR Calculation 45 Glucose 177 H Calcium 9.0 Medical - DS: A/P - Patient/Caregiver Discharge Instructions Activity: increase activity as tolerated Diet: Consistent Carbohydrate - Follow up Plan Follow up with: Brandon Nunez DO [Primary Care Provider] - Disposition: Home, Self-Care Prognosis: Good Rehab Potential: Good Overall status at discharge: patient is back to baseline Medical - DS: Qual - VTE Deep Vein Thrombosis/Pulmonary Embolism Present on Admission: No
[2019-12-25] MEDS ORDERED: ATORVASTATIN 20 MG TABLET PO SCH (21:00)
== END 2019-12-25 14:10 | disposition home or self-care (01) | DRG 690 ==
LOC: ED 14:49 → ICU 21:41 → MEDSUR 12-24 10:15
PROVIDERS: ADMIT Internal Medicine; ATTEND Internal Medicine